=== PATIENT | female | born 1940 | race American Indian/Alaskan Native ===

== ENCOUNTER 2017-03-07 12:28 | Outpatient (CLI) | payer MEDICARE ==
--- NOTE | 2017-03-08 12:26 | Mammography Report ---
BONE DENSITY STUDY: DEFINITIONS: BMD = Bone Mineral Density T-score = BMD related to mean peak bone mass of young adult (mean expressed in Standard Deviation) Z-score = Age matched BMD expressed in SD World Health Organization (WHO) Diagnostic Criteria Normal T-score > -1 SD Osteopenia T-score between -1 and -2.4 SD Osteoporosis T-score -2.5 SD or below FINDINGS: The weighted average BMD of lumbar spine L1-L4 is 0.838 with a T-score of -1.9. The weighted average BMD of hip is 0.793 with a T-score of -1.2. IMPRESSION: The patient's T-score is diagnostic for osteopenia and average relative risk for fracture. NOTE: BMD is not the only risk factor for fracture; also consider factors such as the patient's age, risk of falling, previous osteoporotic fracture, family history of osteoporotic fractures, current smoker, and low body weight. Mcnulty's triangle is a region of interest in femur, predominantly of trabecular bone. It is not a true anatomic site, and [facility] does not recommend its use clinically.
== END 2017-03-07 12:29 | disposition home or self-care (01) ==
LOC: MAMMO 12:28
PROVIDERS: ATTEND Internal Medicine
DX: M85.88 Other specified disorders of bone density and structure, other site (principal); M81.0 Age-related osteoporosis without current pathological fracture; I11.0 Hypertensive heart disease with heart failure; I50.9 Heart failure, unspecified; I48.91 Unspecified atrial fibrillation; I25.10 Atherosclerotic heart disease of native coronary artery without angina pectoris; J44.9 Chronic obstructive pulmonary disease, unspecified; F12.10 Cannabis abuse, uncomplicated; Z87.891 Personal history of nicotine dependence
CPT/HCPCS: 77080

== ENCOUNTER 2017-03-22 15:25 | Inpatient (IN) | payer MEDICARE ==
[2017-03-22] MEDS ORDERED: NACL 0.9% 1000 ML 1,000 ML IV ONE (18:13)
--- NOTE | 2017-03-22 18:20 | Emergency Department Report ---
ED Chest Pain HPI - General Chief Complaint: Chest Pain Stated Complaint: CHEST PAIN Time Seen by Provider: 03/22/17 17:58 Source: EMS Mode of arrival: Stretcher Limitations: Physical Limitation - History of Present Illness Initial Comments: 76-year-old female here with complaint of nausea and feeling weak. Patient has some mild chest pain. Patient was at her primary care's office and was sent to the emergency department stay. She appears ill. He's had some nausea and diarrhea. Just complains of mild chest pain. She's been history of CAD. She denies fevers. She describes chest pain in the center of her chest doesn't radiate and she does not have associated symptoms. MD Complaint: chest pain -: Sudden Pain Radiation: none Severity: moderate Severity scale (0 -10): 7 Quality: tightness Consistency: intermittent Improves With: nothing re: nausea, vomting. denies: diaphoresis, dyspnea Treatments Prior to Arrival: none - Related Data Home Medications Medication Instructions Recorded Confirmed Last Taken ALPRAZolam [Alprazolam] 0.5 mg PO DAILY 11/14/14 11/14/14 11/14/14 Aclidinium [place] [[place] 1 inhalation INHALATION PRN PRN 11/14/14 11/14/14 1 Month Ago Pressair] Aspirin EC [Aspirin Enteric Coated 325 mg PO DAILY 11/14/14 11/14/14 11/14/14 05 :15 TAB] Furosemide 40 mg PO DAILY 11/14/14 11/14/14 11/14/14 Metoprolol Tartrate 25 mg PO BID 11/14/14 11/14/14 11/14/14 Potassium Chloride [Klor-Con M20] 20 meq PO DAILY 11/14/14 11/14/14 11/14/14 Rasagiline Mesylate (Nf) [Azilect 0.5 mg PO DAILY 11/14/14 11/14/14 11/14/14 (Nf)] levOCARNitine [Levocarnitine] 330 mg PO BID 11/14/14 11/14/14 11/14/14 Allergies Allergy/AdvReac Type Severity Reaction Status Date / Time Penicillins Allergy Severe Hives Verified 03/22/17 17:36 Heart Score - HEART Score History: Moderately suspicious EKG: Non-specific Age: > 65 Risk factors: > 3 risk factors or hx of atherosclerotic disease Troponin: < normal limit HEART Score: 6 ED Review of Systems ROS: Stated complaint: CHEST PAIN Other details as noted in HPI Comment: All other systems reviewed and negative Constitutional: malaise, weakness. denies: chills, fever Eyes: denies: eye pain, eye discharge, vision change ENT: denies: ear pain, throat pain Respiratory: denies: cough, shortness of breath, wheezing Cardiovascular: chest pain. denies: palpitations Endocrine: no symptoms reported Gastrointestinal: abdominal pain, nausea, vomiting, diarrhea Genitourinary: denies: urgency, dysuria, discharge Musculoskeletal: denies: back pain, joint swelling, arthralgia Skin: denies: rash, lesions Neurological: denies: headache, weakness, paresthesias Psychiatric: denies: anxiety, depression Hematological/Lymphatic: denies: easy bleeding, easy bruising ED Past Medical Hx - Past Medical History Hx Hypertension: Yes (2009) Hx Heart Attack/AMI: No Hx Congestive Heart Failure: Yes Hx Arthritis: Yes Hx COPD: Yes - Surgical History Hx Open Heart Surgery: Yes (12/09/94) Hx Cholecystectomy: Yes (2004) - Family History Family history: no significant - Social History Smoking Status: Never Smoker Substance Use Type: None - Medications Home Medications: Home Medications Medication Instructions Recorded Confirmed Last Taken Type ALPRAZolam [Alprazolam] 0.5 mg PO DAILY 11/14/14 11/14/14 11/14/14 History Aclidinium [place] [Tudorza 1 inhalation INHALATION PRN PRN 11/14/14 11/14/14 1 Month Ago History Pressair] Aspirin EC [Aspirin Enteric Coated 325 mg PO DAILY 11/14/14 11/14/14 11/14/14 05 :15 History TAB] Furosemide 40 mg PO DAILY 11/14/14 11/14/14 11/14/14 History Metoprolol Tartrate 25 mg PO BID 11/14/14 11/14/14 11/14/14 History Potassium Chloride [Klor-Con M20] 20 meq PO DAILY 11/14/14 11/14/14 11/14/14 History Rasagiline Mesylate (Nf) [Azilect 0.5 mg PO DAILY 11/14/14 11/14/14 11/14/14 History (Nf)] levOCARNitine [Levocarnitine] 330 mg PO BID 11/14/14 11/14/14 11/14/14 History ED Physical Exam - General Limitations: Physical Limitation General appearance: alert, other (weak appearing) - Head Head exam: Present: atraumatic, normocephalic - Eye Eye exam: Present: normal appearance. Absent: scleral icterus, conjunctival injection - ENT ENT exam: Present: mucous membranes moist - Neck Neck exam: Present: normal inspection - Respiratory Respiratory exam: Present: normal lung sounds bilaterally. Absent: respiratory distress, wheezes, rales - Cardiovascular Cardiovascular Exam: Present: regular rate, normal rhythm, normal heart sounds. Absent: systolic murmur, diastolic murmur, rubs, gallop - GI/Abdominal GI/Abdominal exam: Present: soft, normal bowel sounds. Absent: distended, tenderness - Extremities Exam Extremities exam: Present: normal inspection - Back Exam Back exam: Present: normal inspection - Neurological Exam Neurological exam: Present: alert, oriented X3 - Psychiatric Psychiatric exam: Present: normal affect, normal mood - Skin Skin exam: Present: warm, dry, intact, normal color. Absent: rash ED Course Vital Signs 03/22/17 03/22/17 17:27 17:37 Temperature 98.1 F Pulse Rate 103 H Respiratory 16 Rate Blood Pressure 139/96 Blood Pressure 139/96 [Left] O2 Sat by Pulse 98 99 Oximetry ED Medical Decision Making - Lab Data Result diagrams: 03/22/17 18:01 03/22/17 18:01 Laboratory Results - last 24 hr 03/22/17 03/22/17 03/22/17 18:01 18:01 18:01 WBC 9.8 RBC 4.87 Hgb 14.8 H Hct 44.1 H MCV 91 MCH 30 MCHC 34 RDW 14.5 Plt Count 192 Lymph % (Auto) 19.5 [place] % (Auto) 6.0 Eos % (Auto) 0.2 Baso % (Auto) 0.2 Lymph # 1.9 [place] # 0.6 Eos # 0.0 Baso # 0.0 Seg Neutrophils % 74.1 H Seg Neutrophils # 7.3 PT 13.7 INR 1.06 Sodium 142 Potassium 3.8 Chloride 100.9 Carbon Dioxide 27 Anion Gap 18 BUN 17 Creatinine 0.7 Estimated GFR > 60 BUN/Creatinine Ratio 24.28 Glucose 84 Lactic Acid Calcium 9.5 Total Bilirubin 1.60 H AST 15 ALT 8 Alkaline Phosphatase 69 Troponin T Total Protein 6.9 Albumin 4.2 Albumin/Globulin Ratio 1.6 Lipase 03/22/17 03/22/17 03/22/17 18:01 18:01 19:08 WBC RBC Hgb Hct MCV MCH MCHC RDW Plt Count Lymph % (Auto) [place] % (Auto) Eos % (Auto) Baso % (Auto) Lymph # [place] # Eos # Baso # Seg Neutrophils % Seg Neutrophils # PT INR Sodium Potassium Chloride Carbon Dioxide Anion Gap BUN Creatinine Estimated GFR BUN/Creatinine Ratio Glucose Lactic Acid 1.30 Calcium Total Bilirubin AST ALT Alkaline Phosphatase Troponin T < 0.010 Total Protein Albumin Albumin/Globulin Ratio Lipase 8 L - EKG Data -: EKG Interpreted by Il - EKG Data 03/22/17 18:19 Sinus 97 normal axis and occasional PVC, normal intervals T-wave inversions in 23 aVF and V3 through V6 - Medical Decision Making 76-year-old female here with weakness and chest pain. Patient having some nausea vomiting diarrhea. EKG shows T-wave inversions in multiple leads. She has a known history of CAD. Plan to check labs troponins and anticipated admission. She has a slightly elevated total bilirubin of 1.6. Given her symptoms of nausea vomiting and her ill appearance and plan a CT of her abdomen to further assess intra-abdominal pathology. She will need to be admitted for chest pain regardless. Portions of this chart were dictated with dictation software. There may be dictation errors contained within this note. Critical care attestation.: If time is entered above; I have spent that time in minutes in the direct care of this critically ill patient, excluding procedure time. ED Disposition Clinical Impression: Chest pain, Nausea and vomiting Disposition: OP ADMIT IP TO THIS HOSP Is pt being admited?: Yes Condition: Serious Instructions: Chest Pain (ED) Referrals: PRIMARY CARE, [Primary Care Provider] - 3-5 Days
[2017-03-22 18:30] LABS: Basophils % (Auto) 0.2 % (0.0-1.8); Eosinophils % (Auto) 0.2 % (0.0-4.3); Hematocrit 44.1 % (30.3-42.9); Hemoglobin 14.8 gm/dl (10.1-14.3); Mean Corpuscular HGB Conc 34 % (30-34); Mean Corpuscular Hemoglobin 30 pg (28-32); Mean Corpuscular Volume 91 fl (79-97); Platelet Count 192 K/mm3 (140-440); Red Blood Count 4.87 M/mm3 (3.65-5.03); Red Cell Distribution Width 14.5 % (13.2-15.2); White Blood Count 9.8 K/mm3 (4.5-11.0)
[2017-03-22 18:37] LABS: Alanine Aminotransferase 8 units/L (7-56); Albumin 4.2 g/dL (3.9-5); Albumin/Globulin Ratio 1.6 %; Alkaline Phosphatase 69 units/L (35-129); Anion Gap 18 mmol/L; BUN/Creatinine Ratio 24.28; Blood Urea Nitrogen 17 mg/dL (7-17); Calcium 9.5 mg/dL (8.4-10.2); Carbon Dioxide 27 mmol/L (22-30); Chloride 100.9 mmol/L (98-107); Glucose 84 mg/dL (65-100); Potassium 3.8 mmol/L (3.6-5.0); Sodium 142 mmol/L (137-145); Total Protein 6.9 g/dL (6.3-8.2)
[2017-03-22 18:45] LABS: INR 1.06 (0.87-1.13)
[2017-03-22] MEDS ORDERED: NACL ONE (20:59)
--- NOTE | 2017-03-22 22:23 | Cat Scan Report ---
FINAL REPORT EXAM: CT ABDOMEN PELVIS W CON HISTORY: nausea, vomiting, abdominal pain, chest pain TECHNIQUE: Spiral CT scanning of the abdomen and pelvis after the uneventful administration of IV contrast. Multiplanar reformations. 100 mL Omnipaque IV. PRIORS: None. FINDINGS: Abdomen: Visualized lung bases grossly unremarkable. Gallbladder surgically absent. Liver without significant abnormality. Spleen without significant abnormality. Pancreas without significant abnormality. Ovoid hypodensity in the right kidney upper pole measures approximately 3.5 cm, with Hounsfield units measuring 41, not compatible with a simple cyst. Smaller, rounded hypodensities in right renal mid and lower pole, largest measuring 1.6 cm, suspicious for solid lesions. Probable subcentimeter left renal cyst. No significant hydronephrosis. Adrenal glands without significant abnormality. Pelvis: Majority of the colon incompletely or nondistended, with variable bowel wall and fold thickening, but no significant pericolonic fat stranding. Mild diverticular change in the sigmoid colon. No evidence of mechanical bowel obstruction. Appendix within normal limits. No significant free peritoneal fluid or apparent adenopathy. Abdominal aorta non-aneurysmal. Probable partially calcified, leiomyomatous change in the uterus. Marked compression deformity in L2 vertebral body level, with retropulsed fragment and considerable central spinal canal narrowing. Degenerative change in the lumbar spine. Small, fat-containing left inguinal hernia. IMPRESSION: 1. Findings suspicious for complex cystic foci versus solid lesions in right kidney as reported. Correlation with renal ultrasound may help in further evaluation, as clinically indicated, and followup suggested. 2. Findings which may be due to incomplete or nondistention versus nonspecific postinflammatory change in the colon of uncertain chronicity. Correlate clinically. 3. Marked, possible insufficiency compression deformity in L2 vertebral body, with considerable central spinal stenosis.
--- NOTE | 2017-03-22 22:57 | History and Physical Report ---
History of Present Illness Date of examination: 03/22/17 History of present illness: 76-year-old woman with a history of Parkinson's, coronary artery disease high blood pressure brought to the emergency room with complaints of abdominal pain around the periumbilical area which she describes as a sharp pain, intermittent in nature and lasted for 5 minutes, density 7/10, radiating up into the epigastric area, she cannot identify exacerbating or relieving factors. Pain started on Tuesday, associated with nausea, diaphoresis Review Of Systems: Constitutional: no weight loss Ears, eyes, nose, mouth and throat: no nasal congestion, no nasal discharge, no sinus pressure, blurry vision, diplopia Neck: No neck pain or rigidity. Cardiovascular: chest pain, orthopnea, palpitations Respiratory: No shortness of breath, cough Gastrointestinal:no hematochezia Genitourinary : no dysuria, frequency , hematuria Musculoskeletal: no muscle ache Integumentary: no rash, no pruritis Neurological: no parathesias, focal weakness Endocrine: no cold or heat intolerance, no polyuria or polydipsia Hematologic/Lymphatic: no easy bruising, no easy bleeding, no gland swelling Allergic/Immunologic: no urticaria, no angioedema. PAST MEDICAL HISTORY: Parkinson's, coronary artery disease, high blood pressure PAST SURGICAL HISTORY: Cholecystectomy, CABG FAMILY HISTORY: Hypertension SOCIAL HISTORY: Denies alcohol, tobacco, drugs Medications and Allergies Allergies Allergy/AdvReac Type Severity Reaction Status Date / Time Penicillins Allergy Severe Hives Verified 03/22/17 17:36 Home Medications Medication Instructions Recorded Confirmed Last Taken Type ALPRAZolam [Alprazolam] 0.5 mg PO DAILY 11/14/14 03/22/17 11/14/14 History Aclidinium [place] [Tudorza 1 inhalation INHALATION PRN PRN 11/14/14 03/22/17 1 Month Ago History Pressair] Aspirin EC [Aspirin Enteric Coated 325 mg PO DAILY 11/14/14 03/22/17 11/14/14 05 :15 History TAB] Furosemide 40 mg PO DAILY 11/14/14 03/22/17 11/14/14 History Metoprolol Tartrate 25 mg PO BID 11/14/14 03/22/17 11/14/14 History Potassium Chloride [Klor-Con M20] 20 meq PO DAILY 11/14/14 03/22/17 11/14/14 History Rasagiline Mesylate (Nf) [Azilect 0.5 mg PO DAILY 11/14/14 03/22/17 11/14/14 History (Nf)] levOCARNitine [Levocarnitine] 330 mg PO BID 11/14/14 03/22/17 11/14/14 History Exam - Physical Exam Narrative exam: Gen. appearance: Patient lying in bed in no acute distress HEENT: Normocephalic/atraumatic, pupils equal round reactive to light, extra alkaline movement intact, no scleral icterus, no JVD or thyromegaly or nodule, neck is supple, mucous membrane moist, no erythema or exudate Heart: S1-S2, regular rate and rhythm Lungs: Clear to auscultation bilateral breathing comfortable Abdomen: Positive bowel sounds, tender in the periumbilical area, nondistended, no organomegaly Extremities: No edema, cyanosis, clubbing Neuro:: Oriented 3 , cranial nerves II-12 intact, speech, motor intact Skin: No rash, nodules, warm dry - Constitutional Vitals: Temp Pulse Resp BP Pulse Ox 98.1 F 103 H 16 139/96 99 03/22/17 17:27 03/22/17 17:27 03/22/17 17:27 03/22/17 17:27 03/22/17 17:37 Results - Labs CBC & Chem 7: 03/22/17 18:01 03/22/17 18:01 Labs: Abnormal lab results 03/22/17 03/22/17 03/22/17 Range/Units 18:01 18:01 18:01 Hgb 14.8 H (10.1-14.3) gm/dl Hct 44.1 H (30.3-42.9) % Seg Neutrophils % 74.1 H (40.0-70.0) % Total Bilirubin 1.60 H (0.1-1.2) mg/dL Lipase 8 L (13-60) units/L - Imaging and Cardiology CT scan - abdomen: pending CT scan - pelvis: pending Assessment and Plan Assessment Abdominal pain Abnormal appearance of the kidneys Coronary artery disease Hypertension Parkinson's Plan Admit to medicine Obtain ultrasound of the kidneys Check cardiac enzymes, continue appropriate outpatient medications DVT prophylaxis
[2017-03-23] MEDS ORDERED: TYLENOL PO PRN (00:50)
[2017-03-23] MEDS: ZOFRAN IV PRN ×2 (01:35→18:07)
[2017-03-23] MEDS: PERCOCET 5/325 PO PRN ×2 (01:35→22:22)
[2017-03-23 03:06] LABS: Creatine Kinase MB 1.3 ng/mL (0.0-4.0)
[2017-03-23 03:08] LABS: Creatine Kinase 38 units/L (30-135)
--- NOTE | 2017-03-23 08:03 | XRay Report ---
AP CHEST: HISTORY: chest pain No comparison. Previous thoracic surgery changes are noted. There is normal heart size and pulmonary vascularity. The lungs are clear. The bony structures are grossly intact. IMPRESSION: No acute cardiopulmonary process identified.
[2017-03-23 08:05] LABS: Creatine Kinase MB 1.4 ng/mL (0.0-4.0)
[2017-03-23 08:06] LABS: Creatine Kinase 35 units/L (30-135)
[2017-03-23] MEDS: LOVENOX SUB-Q SCH (09:44)
--- NOTE | 2017-03-23 09:45 | Ultrasound Report ---
ULTRASOUND RENAL BILATERAL INDICATION: Followup renal CT findings. COMPARISON: Yesterday's CT. FINDINGS: Renal sonography demonstrates normal/top normal renal cortical echogenicity. Grossly preserved contours. No hydronephrosis. RIGHT KIDNEY is 11.5 x 4.6 x 4.6 cm with cortical thickness of 1.5 cm. Of 2 dominant somewhat complex right renal CT hypodensities, the larger at the superior pole measuring 3.5 x 3.4 cm, image 5 appears hypoechoic/simple cystic. Another small 1 cm mid to lower renal cortical hypoechoic focus may also be present, images 25-27. LEFT KIDNEY is 9.3 x 5 x 4.6 cm with cortical thickness of 1.3 cm. Normal imaged URINARY BLADDER. CONCLUSION: At least 2 right renal hypoechoic foci/cysts, though were somewhat complex by CT. No acute renal sonographic abnormality. Please also correlate clinically and with prior relevant imaging, if available from an outside institution. If none, dedicated renal mass protocol short-term CT followup may be considered to assess for stability, as appropriate. Thank you for the opportunity to participate in this patient's care.
[2017-03-23] MEDS ORDERED: ACLIDINIUM BROMIDE INHALATION PRN (10:13)
[2017-03-23] MEDS ORDERED: LEVOCARNITINE 330 MG PO SCH (10:15)
[2017-03-23] MEDS: K-DUR PO SCH (11:27)
[2017-03-23] MEDS: LASIX PO SCH (11:28)
[2017-03-23] MEDS: LOPRESSOR PO SCH ×2 (11:29→22:19)
[2017-03-23] MEDS ORDERED: XANAX PO SCH (12:00)
[2017-03-23] MEDS ORDERED: SINEMET PO SCH ×2 (15:00→22:00)
--- NOTE | 2017-03-23 15:26 | Progress Note ---
Assessment and Plan Assessment and plan: 76-year-old woman with a history of Parkinson's, coronary artery disease high blood pressure brought to the emergency room with complaints of abdominal pain around the periumbilical area which she describes as a sharp pain, intermittent in nature and lasted for 5 minutes, density 7/10, radiating up into the epigastric area, she cannot identify exacerbating or relieving factors. Pain started on Tuesday, associated with nausea, diaphoresis Abdominal pain * GI eval. Could be secondary to recurrent Hernia * Continue nausea treatment Abnormal appearance of the kidneys * Renal Cyst * urology eval outpatient * short term repeat CT abdomen outpatient Coronary artery disease * Cardiac enzymes negative. * Cardiology consult due to intermittent chest pain. Patient known to their service Hypertension * Resume home meds Parkinson's * Resume home meds Compression fracture * S/P fall a few months ago * Currently in physical therapy * Outpatient orthopedic eval DVT/GI prophy PLAN OF CARE DISCUSSED IN DETAIL WITH THE PATIENT. History Interval history: Patient seen and examined in no acute distress. She reports improvement but not yet at baseline. Abdominal pain appears to be improving. She does acknowledge to me that she had a fall a few months ago and since then had noted above the fracture. She is followed by physical therapy outpatient. She although reports she's been having intractable nausea for multiple months now. And sometimes extending to chest pain. She also has had difficulty with by mouth intake especially when the nausea and sepsis worse. Hospitalist Physical - Physical exam Narrative exam: VITAL SIGNS: Reviewed. GENERAL: The patient appeared well nourished and normally developed. Vital signs as documented. HEAD: No signs of head trauma. EYES: Pupils are equal. Extraocular motions intact. EARS: Hearing grossly intact. MOUTH: Oropharynx is normal. NECK: No adenopathy, no JVD. CHEST: Chest with clear breath sounds bilaterally. No wheezes, rales, or rhonchi. CARDIAC: Regular rate and rhythm. S1 and S2, without murmurs, gallops, or rubs. VASCULAR: No Edema. Peripheral pulses normal and equal in all extremities. ABDOMEN: Soft, without detectable tenderness. No sign of distention. No rebound or guarding, and no masses palpated. Bowel Sounds normal. MUSCULOSKELETAL: Good range of motion of all major joints. Extremities without clubbing, cyanosis or edema. NEUROLOGIC EXAM: Alert and oriented x 3. No focal sensory or strength deficits. Speech normal. Follows commands. Fine resting tremor PSYCHIATRIC: Mood normal. SKIN: Well-healed surgical scar - Constitutional Vitals: Temp Pulse Resp BP Pulse Ox 98.2 F 68 16 153/97 96 03/23/17 13:04 03/23/17 13:04 03/23/17 13:04 03/23/17 13:04 03/23/17 10:14 Results - Labs CBC & Chem 7: 03/22/17 18:01 03/22/17 18:01 Labs: Laboratory Last Values WBC 9.8 K/mm3 (4.5-11.0) 03/22/17 18:01 RBC 4.87 M/mm3 (3.65-5.03) 03/22/17 18:01 Hgb 14.8 gm/dl (10.1-14.3) H 03/22/17 18:01 Hct 44.1 % (30.3-42.9) H 03/22/17 18:01 MCV 91 fl (79-97) 03/22/17 18:01 MCH 30 pg (28-32) 03/22/17 18:01 MCHC 34 % (30-34) 03/22/17 18:01 RDW 14.5 % (13.2-15.2) 03/22/17 18:01 Plt Count 192 K/mm3 (140-440) 03/22/17 18:01 Lymph % (Auto) 19.5 % (13.4-35.0) 03/22/17 18:01 [place] % (Auto) 6.0 % (0.0-7.3) 03/22/17 18:01 Eos % (Auto) 0.2 % (0.0-4.3) 03/22/17 18:01 Baso % (Auto) 0.2 % (0.0-1.8) 03/22/17 18:01 Lymph # 1.9 K/mm3 (1.2-5.4) 03/22/17 18:01 [place] # 0.6 K/mm3 (0.0-0.8) 03/22/17 18:01 Eos # 0.0 K/mm3 (0.0-0.4) 03/22/17 18:01 Baso # 0.0 K/mm3 (0.0-0.1) 03/22/17 18:01 Seg Neutrophils % 74.1 % (40.0-70.0) H 03/22/17 18:01 Seg Neutrophils # 7.3 K/mm3 (1.8-7.7) 03/22/17 18:01 PT 13.7 Sec. (12.2-14.9) 03/22/17 18:01 INR 1.06 (0.87-1.13) 03/22/17 18:01 Sodium 142 mmol/L (137-145) 03/22/17 18:01 Potassium 3.8 mmol/L (3.6-5.0) 03/22/17 18:01 Chloride 100.9 mmol/L (98-107) 03/22/17 18:01 Carbon Dioxide 27 mmol/L (22-30) 03/22/17 18:01 Anion Gap 18 mmol/L 03/22/17 18:01 BUN 17 mg/dL (7-17) 03/22/17 18:01 Creatinine 0.7 mg/dL (0.7-1.2) 03/22/17 18:01 Estimated GFR > 60 ml/min 03/22/17 18:01 BUN/Creatinine Ratio 24.28 % 03/22/17 18:01 Glucose 84 mg/dL (65-100) 03/22/17 18:01 Lactic Acid 1.30 mmol/L (0.7-2.0) 03/22/17 19:08 Calcium 9.5 mg/dL (8.4-10.2) 03/22/17 18:01 Total Bilirubin 1.60 mg/dL (0.1-1.2) H 03/22/17 18:01 AST 15 units/L (5-40) 03/22/17 18:01 ALT 8 units/L (7-56) 03/22/17 18:01 Alkaline Phosphatase 69 units/L (35-129) 03/22/17 18:01 Total Creatine Kinase 35 units/L (30-135) 03/23/17 06:50 CK-MB (CK-2) 1.4 ng/mL (0.0-4.0) 03/23/17 06:50 CK-MB (CK-2) Rel Index 4.0 (0-4) 03/23/17 06:50 Troponin T < 0.010 ng/mL (0.00-0.029) 03/23/17 06:50 Total Protein 6.9 g/dL (6.3-8.2) 03/22/17 18:01 Albumin 4.2 g/dL (3.9-5) 03/22/17 18:01 Albumin/Globulin Ratio 1.6 % 03/22/17 18:01 Lipase 8 units/L (13-60) L 03/22/17 18:01 - Imaging and Cardiology Chest x-ray: image reviewed (no acute pathology)
[2017-03-23] MEDS: RASAGILINE MESYLATE 1 MG PO SCH (16:52)
[2017-03-23] MEDS: SINEMET PO SCH (22:19)
[2017-03-24 06:01] LABS: Basophils % (Auto) 1.1 % (0.0-1.8); Eosinophils % (Auto) 3.9 % (0.0-4.3); Hematocrit 40.1 % (30.3-42.9); Hemoglobin 13.3 gm/dl (10.1-14.3); Mean Corpuscular HGB Conc 33 % (30-34); Mean Corpuscular Hemoglobin 30 pg (28-32); Mean Corpuscular Volume 91 fl (79-97); Platelet Count 154 K/mm3 (140-440); Red Blood Count 4.39 M/mm3 (3.65-5.03); Red Cell Distribution Width 14.5 % (13.2-15.2); White Blood Count 5.6 K/mm3 (4.5-11.0)
[2017-03-24 06:17] LABS: Anion Gap 16 mmol/L; Blood Urea Nitrogen 7 mg/dL (7-17); Calcium 8.5 mg/dL (8.4-10.2); Carbon Dioxide 24 mmol/L (22-30); Glucose 81 mg/dL (65-100); Potassium 3.6 mmol/L (3.6-5.0); Sodium 139 mmol/L (137-145)
[2017-03-24] MEDS: LASIX PO SCH (09:22)
[2017-03-24] MEDS: K-DUR PO SCH (09:22)
[2017-03-24] MEDS: LOPRESSOR PO SCH (09:23)
[2017-03-24] MEDS: RASAGILINE MESYLATE 1 MG PO SCH (09:24)
[2017-03-24] MEDS: SINEMET PO SCH (09:25)
[2017-03-24 09:27] VITALS: BP 108/73
[2017-03-24] MEDS: LOVENOX SUB-Q SCH (09:27)
--- NOTE | 2017-03-24 10:29 | Discharge Summary ---
Providers - Providers Date of Admission: 03/22/17 22:55 Attending physician: GILBERT SANCHEZ MD 03/23/17 12:08 Consult to Physician [CONS] Routine Consulting Provider: FIONA SAHU Reason For Exam: chest pain Place consult to:: OFFICE Notified:: YES Phone number called:: [phone] If yes, spoke with:: STEFANO Time called:: 13:18 Comment:: DANIEL 03/23/17 15:26 Consult to Physician [CONS] Routine Consulting Provider: GEOFF JENKINS Reason For Exam: ABDOMINAL PAIN Place consult to:: ANSWERING SERVICE Notified:: YES Phone number called:: [phone] If yes, spoke with:: EVETTE Time called:: 16:53 Comment:: DANIEL Primary care physician: ROGERS BENNETT Hospitalization Reason for admission: INTERACTABLE NASUEA WITH VOMITING Condition: Serious Hospital course: 76-year-old woman with a history of Parkinson's, coronary artery disease high blood pressure brought to the emergency room with complaints of abdominal pain around the periumbilical area which she describes as a sharp pain, intermittent in nature and lasted for 5 minutes, density 7/10, radiating up into the epigastric area, she cannot identify exacerbating or relieving factors. Pain started on Tuesday, associated with nausea, diaphoresis Abdominal pain * Secondary to recurrent Hernia, tolerating diet now and will follow with GI outpatient * Continue nausea treatment INTRACTABLE NAUSEA WITH VOMITING * ANTI-EMETICS Abnormal appearance of the kidneys * Renal Cyst * urology eval outpatient-Discussed with patient and she will discuss with her PCP * short term repeat CT abdomen outpatient Coronary artery disease * Cardiac enzymes negative. * patient reports of chest pain consistent with GERD, cardiac enzymes were negative. it happens with nausea and is burning in nature and resolves post vomiting. she will follow with cardiology in the office. Hypertension * Resume home meds Parkinson's * Resume home meds Compression fracture * S/P fall a few months ago * Currently in physical therapy OUTPATIENT * Outpatient orthopedic eval-REFERRAL GIVEN Disposition: DC/TX- HOME UNDER [facility] Time spent for discharge: 35 mins Core Measure Documentation - Palliative Care Palliative Care/ Comfort Measures: Not Applicable - Core Measures Any of the following diagnoses?: none - VTE Discharge Requirements Deep Vein Thrombosis/Pulmonary Embolism Present on Admission: No Exam - Physical Exam Narrative exam: VITAL SIGNS: Reviewed. GENERAL: The patient appeared well nourished and normally developed. Vital signs as documented. HEAD: No signs of head trauma. EYES: Pupils are equal. Extraocular motions intact. EARS: Hearing grossly intact. MOUTH: Oropharynx is normal. NECK: No adenopathy, no JVD. CHEST: Chest with clear breath sounds bilaterally. No wheezes, rales, or rhonchi. CARDIAC: Regular rate and rhythm. S1 and S2, without murmurs, gallops, or rubs. VASCULAR: No Edema. Peripheral pulses normal and equal in all extremities. ABDOMEN: Soft, without detectable tenderness. No sign of distention. No rebound or guarding, and no masses palpated. Bowel Sounds normal. MUSCULOSKELETAL: Good range of motion of all major joints. Extremities without clubbing, cyanosis or edema. NEUROLOGIC EXAM: Alert and oriented x 3. No focal sensory or strength deficits. Speech normal. Follows commands. Fine resting tremor PSYCHIATRIC: Mood normal. SKIN: Well-healed surgical scar - Constitutional Vitals: Temp Pulse Resp BP Pulse Ox 97.8 F 77 18 108/73 97 03/23/17 19:50 03/24/17 09:23 03/23/17 22:00 03/24/17 09:23 03/23/17 22:00 Plan Activity: advance as tolerated, fall precautions Diet: low fat Special Instructions: record daily BP diary Follow up with: FIONA SAHU MD [Staff Physician] - 7 Days YRIS MATOS MD [Staff Physician] - 7 Days PRIMARY CARE, [Referring] - 3-5 Days CHER LOPEZ MD [Staff Physician] - 7 Days Prescriptions: Ondansetron [Zofran Odt] 4 mg PO Q8HR #30 tab.rapdis traMADol [Ultram] 50 mg PO Q6HR PRN #14 tablet PRN Reason: Pain
[2017-03-24] MEDS ORDERED: ECOTRIN PO SCH (12:00)
--- NOTE | 2017-03-24 15:02 | Event Note ---
Date: 03/24/17 Patient was discharged from the hospital before a cardiology consult could be completed. If cardiology evaluation is still required, please advise the patient to follow- up in the office phone number [phone].
== END 2017-03-24 14:05 | disposition home health service (06) | DRG 395 ==
LOC: ED 15:25 → CC2 22:55 → 3A 23:21 → CC2 23:23 → 3A 23:43 → CC2 23:47
PROVIDERS: ADMIT Internal Medicine; ATTEND Internal Medicine
DX: K46.9 Unspecified abdominal hernia without obstruction or gangrene (principal); I25.10 Atherosclerotic heart disease of native coronary artery without angina pectoris; G20 Parkinson's disease; N28.1 Cyst of kidney, acquired; I11.0 Hypertensive heart disease with heart failure; K21.9 Gastro-esophageal reflux disease without esophagitis; T14.8 Other injury of unspecified body region; I50.9 Heart failure, unspecified; J44.9 Chronic obstructive pulmonary disease, unspecified; Z90.49 Acquired absence of other specified parts of digestive tract; Z88.0 Allergy status to penicillin; Z79.82 Long term (current) use of aspirin; Z95.1 Presence of aortocoronary bypass graft; Z82.49 Family history of ischemic heart disease and other diseases of the circulatory system
CPT/HCPCS: 36415; 71010; 74177; 76770; 80048; 80053; 82140; 82550; 82553; 83690; 84484; 85025; 85610; 93005; 93010; 96360; 96361; J1650; J2405; J7030; Q9967

== ENCOUNTER 2018-11-09 15:04 | Inpatient (IN) | payer MEDICARE ==
--- NOTE | 2018-11-09 15:17 | Emergency Department Report ---
Blank Doc - Documentation Documentation: 77 y/o female with Hx/o of Parkinson disease and HTN comes in for rt arm tingl ing and numbness. BS 109 in Triage. Gripe is decreased from left. Code Stroke Called.
--- NOTE | 2018-11-09 15:38 | Emergency Department Report ---
ED Neuro Deficit HPI - General Chief Complaint: Weakness Stated Complaint: SICK Time Seen by Provider: 11/09/18 15:13 Source: patient, RN notes reviewed, old records reviewed Mode of arrival: Ambulatory Limitations: Physical Limitation - History of Present Illness Initial Comments: Primary care Dr.: Dr. Barrera Past medical history: Chronic right shoulder pain, arthritis, heart disease, history of cardiac bypass, parkinsonism, questionable GERD This is a 77-year-old female. The patient is not known to this provider previously. The patient presents to the emergency room with resolving right upper extremity weakness. Patient reports chronic right-sided shoulder pain. She reports that earlier on today, she felt like she could not move her right upper extremity. This started at 2:00. It lasted until arrival. It is now resolved. The patient makes no complaints this provider about numbness in either of her upper or lower extremities. She denies headache, neck pain, chest pain, abdominal pain, shortness of breath. She denies bladder or bowel retention, incontinence, she denies saddle anesthesia she reports chronic right shoulder pain which is not really new worse or different, she reports that she is received steroid injections in the past, although hasn't received an injection in quite some time -: Sudden Location: right arm Presenting Symptoms: Present: Weak/Paralyzed One Side (as per history of present illness). Absent: Sudden, Severe Headache, Blurred/Loss of Vision, Facial Droop/Numbness, Unable to Speak Clearly, Altered Mental Status History of same: No Place: work Severity: mild, moderate Quality: weak Improves With: rest Worsens With: medication On Anticoagulants: Yes (patient taking aspirin) - Related Data Home Medications: Home Medications Medication Instructions Recorded Confirmed Last Taken Aspirin EC [Aspirin Enteric Coated 325 mg PO DAILY 11/14/14 03/22/17 11/14/14 05:15 TAB] Furosemide 40 mg PO DAILY 11/14/14 03/22/17 11/14/14 Metoprolol Tartrate 25 mg PO BID 11/14/14 03/22/17 11/14/14 Potassium Chloride [Klor-Con M20] 20 meq PO DAILY 11/14/14 03/22/17 11/14/14 Rasagiline Mesylate (Nf) [Azilect 0.5 mg PO DAILY 11/14/14 03/22/17 11/14/14 (Nf)] Carbidopa/Levodopa 25-100 [Sinemet 25 - 100 mg PO BID 03/23/17 03/23/17 Unknown 25100] Previous Rx's Medication Instructions Recorded Last Taken Type Carbidopa/Levodopa 25-100 [Sinemet 1 each PO BID #1 tablet 03/24/17 Unknown Rx 25100] Ondansetron [Zofran Odt] 4 mg PO Q8HR #30 tab.rapdis 03/24/17 Unknown Rx traMADol [Ultram] 50 mg PO Q6HR PRN #14 tablet 03/24/17 Unknown Rx Allergies/Adverse Reactions: Allergies Allergy/AdvReac Type Severity Reaction Status Date / Time Penicillins Allergy Severe Hives Verified 03/22/17 17:36 ED Review of Systems ROS: Stated complaint: SICK Other details as noted in HPI Constitutional: denies: fever Eyes: denies: eye discharge ENT: denies: epistaxis Respiratory: denies: cough Cardiovascular: denies: chest pain Gastrointestinal: denies: abdominal pain Genitourinary: denies: urgency, dysuria Musculoskeletal: back pain, arthralgia, myalgia Skin: denies: lesions Neurological: weakness, numbness, paresthesias ED Past Medical Hx - Past Medical History Hx Hypertension: Yes (2009) Hx Heart Attack/AMI: No Hx Congestive Heart Failure: Yes Hx Arthritis: Yes Hx COPD: Yes Additional medical history: parkinsons - Surgical History Hx Open Heart Surgery: Yes (12/09/94) Hx Cholecystectomy: Yes (2004) - Social History Smoking Status: Never Smoker Substance Use Type: None - Medications Home Medications: Home Medications Medication Instructions Recorded Confirmed Last Taken Type Aspirin EC [Aspirin Enteric Coated 325 mg PO DAILY 11/14/14 03/22/17 11/14/14 05:15 History TAB] Furosemide 40 mg PO DAILY 11/14/14 03/22/17 11/14/14 History Metoprolol Tartrate 25 mg PO BID 11/14/14 03/22/17 11/14/14 History Potassium Chloride [Klor-Con M20] 20 meq PO DAILY 11/14/14 03/22/17 11/14/14 History Rasagiline Mesylate (Nf) [Azilect 0.5 mg PO DAILY 11/14/14 03/22/17 11/14/14 History (Nf)] Carbidopa/Levodopa 25-100 [Sinemet 25 - 100 mg PO BID 03/23/17 03/23/17 Unknown History 25] Carbidopa/Levodopa 25-100 [Sinemet 1 each PO BID #1 tablet 03/24/17 Unknown Rx 25] Ondansetron [Zofran Odt] 4 mg PO Q8HR #30 tab.rapdis 03/24/17 Unknown Rx traMADol [Ultram] 50 mg PO Q6HR PRN #14 tablet 03/24/17 Unknown Rx ED Neuro Physical Exam - General Limitations: No Limitations, Physical Limitation Suspected Stroke: No - Head Head exam: Present: atraumatic, normocephalic - Eye Eye exam: Present: normal appearance, PERRL, EOMI, other (visual acuity intact to finger counting, color perception, reading at a close distance). Absent: nystagmus - ENT ENT exam: Present: normal exam, normal orophraynx, mucous membranes moist, normal external ear exam - Neck Neck exam: Present: normal inspection, full ROM. Absent: tenderness, meningismus - Respiratory Respiratory exam: Present: normal lung sounds bilaterally. Absent: respiratory distress - Cardiovascular Cardiovascular Exam: Present: normal rhythm, bradycardia, normal heart sounds. Absent: tachycardia, irregular rhythm, systolic murmur, diastolic murmur, rubs, gallop - GI/Abdominal GI/Abdominal exam: Present: soft. Absent: distended, tenderness, guarding, rebound, rigid, pulsatile mass - Extremities Exam Extremities exam: Present: normal inspection, tenderness (there is proximal right shoulder reproducible tenderness. There is no redness, pus or streaking. The muscular compartments are soft.), other (2+ pulses noted in the bilateral upper, lower extremities. Compartments soft. No long bony tenderness. The pelvis is stable.). Absent: full ROM - Back Exam Back exam: Present: normal inspection, full ROM. Absent: tenderness, CVA tenderness (R), paraspinal tenderness, vertebral tenderness - Neurological Exam Neurological exam: Present: alert, other (Extraocular movements intact. Tongue midline. No facial droop. Facial sensation intact to light touch in the V1, V2, V3 distribution bilaterally. 5 and 5 strength in 4 extremities.. Sensation is intact to light touch in 4 extremities.). Absent: motor sensory deficit - NIHSS Assessment Interval: Baseline 1a. Level of Consciousness: alert/keenly responsive 1b. LOC Questions: answers both correctly 1c. LOC Commands: performs tasks correctly 2. Best Gaze: normal 3. Visual: no visual loss 4. Facial Palsy: normal symmetrical movement 5b. Motor Arm Right: no drift 5a. Motor Arm Left: no drift 6a. Motor Leg Left: no drift 6b. Motor Leg Right: no drift 7. Limb Ataxia: absent 8. Sensory: normal 9. Best Language: no aphasia 10. Dysarthria: normal 11. Extinction/Inattention: no abnormality Total Score: 0 Stroke Severity: No Stroke Symptoms - Psychiatric Psychiatric exam: Present: anxious - Skin Skin exam: Present: warm, dry, intact, normal color. Absent: rash ED Course Vital Signs 11/09/18 11/09/18 11/09/18 15:14 15:56 16:01 Temperature 98.6 F Pulse Rate 62 58 L 65 Respiratory 18 13 19 Rate Blood Pressure 135/82 156/86 O2 Sat by Pulse 98 97 Oximetry 11/09/18 11/09/18 11/09/18 16:15 16:30 16:45 Temperature Pulse Rate 60 55 L 58 L Respiratory 18 14 20 Rate Blood Pressure 156/96 165/88 179/98 O2 Sat by Pulse 78 L 98 98 Oximetry - Reevaluation(s) Reevaluation #1: 11/09/18 16:11 Differential diagnosis, including not limited to: Transient ischemic attack, peripheral neuropathy, cervical radiculopathy, chronic right-sided shoulder pain, peripheral neuropathy, chronic parkinsonism Assessment and plan: 77-year-old female with an NIH score of 0 at this time, with chronic right-sided shoulder pain, no obvious motor deficits, does not meet TPA criteria at this time, given NIH score of 0. Based off of the history and physical, I suspect that the patient had exacerbation of her chronic right-sided shoulder pain, and may have a component of cervical radiculopathy versus peripheral neuropathy. Her exam and history at this point in time are not consistent with cervical cord compression syndrome. Code stroke is called overhead, patient had a negative noncontrast CT scan of the brain, and she is currently being interviewed by stroke neurology specialist. We will discuss with them to determine further plan of care. Anticipate admission for further evaluation. However, based off of the history and physical, do not anticipate need to obtain emergent angiogram of the head and neck Reevaluation #2: 11/09/18 17:08 Feels improved. No neurologic deficits on repeat examination. Family and patient state that she is neurologically at baseline. Not a TPA candidate as previously described. Neurology recommendations reviewed and appreciated. Dr. Cox to admit to the medical service. - Lab Data Result diagrams: 11/09/18 15:55 11/09/18 15:55 Lab Results 11/09/18 11/09/18 11/09/18 Range/Units 15:55 15:55 15:55 WBC 5.6 (4.5-11.0) K/mm3 RBC 4.53 (3.65-5.03) M/mm3 Hgb 13.6 (10.1-14.3) gm/dl Hct 41.4 (30.3-42.9) % MCV 91 (79-97) fl MCH 30 (28-32) pg MCHC 33 (30-34) % RDW 14.3 (13.2-15.2) % Plt Count 209 (140-440) K/mm3 Lymph % (Auto) 37.2 H (13.4-35.0) % Greenlee % (Auto) 7.9 H (0.0-7.3) % Eos % (Auto) 2.1 (0.0-4.3) % Baso % (Auto) 1.3 (0.0-1.8) % Lymph # 2.1 (1.2-5.4) K/mm3 Greenlee # 0.4 (0.0-0.8) K/mm3 Eos # 0.1 (0.0-0.4) K/mm3 Baso # 0.1 (0.0-0.1) K/mm3 Seg Neutrophils % 51.5 (40.0-70.0) % Seg Neutrophils # 2.9 (1.8-7.7) K/mm3 PT 13.1 (12.2-14.9) Sec. INR 0.94 (0.87-1.13) APTT 30.5 (24.2-36.6) Sec. Thrombin Time (15.1-19.6) Sec. Sodium 143 (137-145) mmol/L Potassium 3.6 (3.6-5.0) mmol/L Chloride 105.3 (98-107) mmol/L Carbon Dioxide 29 (22-30) mmol/L Anion Gap 12 mmol/L BUN 9 (7-17) mg/dL Creatinine 0.8 (0.7-1.2) mg/dL Estimated GFR > 60 ml/min BUN/Creatinine Ratio 11 % Glucose 81 (65-100) mg/dL Calcium 9.0 (8.4-10.2) mg/dL Troponin T < 0.010 (0.00-0.029) ng/mL 11/09/18 Range/Units 15:55 WBC (4.5-11.0) K/mm3 RBC (3.65-5.03) M/mm3 Hgb (10.1-14.3) gm/dl Hct (30.3-42.9) % MCV (79-97) fl MCH (28-32) pg MCHC (30-34) % RDW (13.2-15.2) % Plt Count (140-440) K/mm3 Lymph % (Auto) (13.4-35.0) % Greenlee % (Auto) (0.0-7.3) % Eos % (Auto) (0.0-4.3) % Baso % (Auto) (0.0-1.8) % Lymph # (1.2-5.4) K/mm3 Greenlee # (0.0-0.8) K/mm3 Eos # (0.0-0.4) K/mm3 Baso # (0.0-0.1) K/mm3 Seg Neutrophils % (40.0-70.0) % Seg Neutrophils # (1.8-7.7) K/mm3 PT (12.2-14.9) Sec. INR (0.87-1.13) APTT (24.2-36.6) Sec. Thrombin Time 17.9 (15.1-19.6) Sec. Sodium (137-145) mmol/L Potassium (3.6-5.0) mmol/L Chloride (98-107) mmol/L Carbon Dioxide (22-30) mmol/L Anion Gap mmol/L BUN (7-17) mg/dL Creatinine (0.7-1.2) mg/dL Estimated GFR ml/min BUN/Creatinine Ratio % Glucose (65-100) mg/dL Calcium (8.4-10.2) mg/dL Troponin T (0.00-0.029) ng/mL - EKG Data -: EKG Interpreted by 11/09/18 16:12 This is a bradycardic rhythm, sinus, 56 bpm, left axis deviation, left anterior fascicular block, low voltage, left ventricular hypertrophy, motion artifact, not having chest pain, not consistent with ST elevation myocardial infarction. - Radiology Data Radiology results: report reviewed, image reviewed Noncontrast CT scan of the brain is negative for acute disease - Thrombolytic Inclusion/Exclusion Thrombolytic Contraindications: Rapidily Improving s/s Critical care attestation.: If time is entered above; I have spent that time in minutes in the direct care of this critically ill patient, excluding procedure time. ED Disposition Clinical Impression: TIA (transient ischemic attack) Disposition: OP ADMIT IP TO THIS HOSP Is pt being admited?: Yes Condition: Stable
--- NOTE | 2018-11-09 15:52 | Cat Scan Report ---
PROCEDURE: CT HEAD/BRAIN WO CON TECHNIQUE: CT examination of the head without IV contrast HISTORY: neuro deficits <6hrs or sx present upon awakening COMPARISONS: None FINDINGS: Nonspecific multifocal opacity in the left mastoid air cells. Right mastoid air cells clear. Middle e ar cavities clear. Included paranasal sinuses are clear. No acute air-fluid level visualized in the i ncluded air-filled sinuses. Bone windows demonstrate no acute fracture. There is ventricular and sulcal prominence compatible with global cerebrocortical atrophy. Low attenuation regions in the cerebral white matter, while nonspecific, are present and usually attr ibuted to chronic ischemic gliosis. It can occur secondary to the normal aging process, hypertension, or arterial sclerotic vascular dise ase. The differential includes demyelination in the appropriate clinical setting. The brain contains no mass, mass effect, hemorrhage, or acute infarct. There is no extra-axial intracranial bleed or brain bleed. There is no midline shift. IMPRESSION: No acute CVA, intracranial bleed, or brain mass Nonspecific left mastoid air cell opacification may reflect eustachian tube dysfunction. Differential includes left mastoiditis, This document is electronically signed by Vitor Roper MD., Nov 09 2018 03:49:50 PM ET
[2018-11-09 16:06] LABS: Basophils # (Auto) 0.1 K/mm3 (0.0-0.1); Basophils % (Auto) 1.3 % (0.0-1.8); Eosinophils # (Auto) 0.1 K/mm3 (0.0-0.4); Eosinophils % (Auto) 2.1 % (0.0-4.3); Hematocrit 41.4 % (30.3-42.9); Hemoglobin 13.6 gm/dl (10.1-14.3); Lymphocytes # (Auto) 2.1 K/mm3 (1.2-5.4); Lymphocytes % (Auto) 37.2 % (13.4-35.0); Mean Corpuscular HGB Conc 33 % (30-34); Mean Corpuscular Volume 91 fl (79-97); Monocytes # (Auto) 0.4 K/mm3 (0.0-0.8); Monocytes % (Auto) 7.9 % (0.0-7.3); Platelet Count 209 K/mm3 (140-440); Red Blood Count 4.53 M/mm3 (3.65-5.03); Red Cell Distribution Width 14.3 % (13.2-15.2)
[2018-11-09 16:17] LABS: INR 0.94 (0.87-1.13)
[2018-11-09 16:18] LABS: Partial Thromboplastin Time 30.5 Sec. (24.2-36.6)
[2018-11-09 16:24] LABS: BUN/Creatinine Ratio 11; Blood Urea Nitrogen 9 mg/dL (7-17); Hemolysis Index 2
--- NOTE | 2018-11-09 16:31 | Emergency Department Report ---
ED Neuro Deficit HPI - General Chief Complaint: Weakness Stated Complaint: SICK Time Seen by Provider: 11/09/18 15:13 Source: patient, RN notes reviewed, old records reviewed Mode of arrival: Ambulatory Limitations: No Limitations, Physical Limitation - History of Present Illness Initial Comments: [facility] Date of service: 11/09/18 Impression: acute, transient right sided weakness - now resolved. NIHSS 2 for right arm and leg weakness, but the patient is at baseline per her and her daughter. Concerning for TIA. Recommend admission for stroke workup. - - - Not a tpa candidate due to: back to baseline. Presentation is not suggestive of Large Vessel Occlusive Disease. Thrombectomy would not be recommended. Differential Diagnosis: 1. Cardioembolic stroke 2. Small vessel disease/lacune 3. Thromboembolic, [id number] mechanism 4. Hypercoagulable state-related infarct 5. Transient ischemic attack 6. Thrombotic mechanism, large artery disease Comments: Door time: 1504 [employer] contacted: 1529 [employer] at bedside: 1535 NIHSS assessment time: 1538 Recommendations: tele ASA if CT head is neg for hemorrhage - none per my read DVT proph - lovenox permissive htn PT/OT/speech bedside swallow eval Inpatient neurology consultation Inpatient stroke evaluation as per Neurology/ Internal Medicine Discussed with ED MD Please call with questions CC transient right arm weakness History of Present Illness Patient is a yo woman with acute, transient right arm weakness starting at approx 1400 and lasting for approx 30-45 minutes. No LOC/convulsion. No blood thinners. No trouble speaking/swallowing. Diagnostic: CT head neg for hemorrhage per my read. Exam: RESULT SUMMARY: 2 points NIH Stroke Scale INPUTS: 1A: Level of consciousness > 0 = Alert; keenly responsive 1B: Ask month and age > 0 = Both questions right 1C: 'Blink eyes' & 'squeeze hands' > 0 = Performs both tasks 2: Horizontal extraocular movements > 0 = Normal 3: Visual burger > 0 = No visual loss 4: Facial palsy > 0 = Normal symmetry 5A: Left arm motor drift > 0 = No drift for 10 seconds 5B: Right arm motor drift > 1 = Drift, but doesn't hit bed 6A: Left leg motor drift > 0 = No drift for 5 seconds 6B: Right leg motor drift > 1 = Drift, but doesn't hit bed 7: Limb Ataxia > 0 = No ataxia 8: Sensation > 0 = Normal; no sensory loss 9: Language/aphasia > 0 = Normal; no aphasia 10: Dysarthria > 0 = Normal 11: Extinction/inattention > 0 = No abnormality Medical Decision Making: - Extensive number of diagnosis or management options are considered above. - Extensive amount of complex data reviewed. - High risk of complication and/or morbidity or mortality are associated with differential diagnostic considerations above. - There may be Uncertain outcome and increased probability of prolonged functional impairment or high probability of severe prolonged functional impairment associated with some of these differential diagnosis. Medical Data Reviewed: 1.Data reviewed include clinical labs, radiology, Medical Tests; 2.Tests results discussed w/performing or interpreting physician; 3.Obtaining/reviewing old medical records; 4.Obtaining case history from another source; 5.Independent review of image, tracing or specimen. Patient was informed the Neurology Consult would happen via telehealth (remote video) and consented to receiving care in this manner. Location: right arm History of same: No Place: work Severity: mild, moderate Quality: weak Improves With: rest Worsens With: medication On Anticoagulants: Yes (patient taking aspirin) - Related Data Home Medications: Home Medications Medication Instructions Recorded Confirmed Last Taken Aspirin EC [Aspirin Enteric Coated 325 mg PO DAILY 11/14/14 03/22/17 11/14/14 05:15 TAB] Furosemide 40 mg PO DAILY 11/14/14 03/22/17 11/14/14 Metoprolol Tartrate 25 mg PO BID 11/14/14 03/22/17 11/14/14 Potassium Chloride [Klor-Con M20] 20 meq PO DAILY 11/14/14 03/22/17 11/14/14 Rasagiline Mesylate (Nf) [Azilect 0.5 mg PO DAILY 11/14/14 03/22/17 11/14/14 (Nf)] Carbidopa/Levodopa 25-100 [Sinemet 25 - 100 mg PO BID 03/23/17 03/23/17 Unknown 25/100] Previous Rx's Medication Instructions Recorded Last Taken Type Carbidopa/Levodopa 25-100 [Sinemet 1 each PO BID #1 tablet 03/24/17 Unknown Rx 25100] Ondansetron [Zofran Odt] 4 mg PO Q8HR #30 tab.rapdis 03/24/17 Unknown Rx traMADol [Ultram] 50 mg PO Q6HR PRN #14 tablet 03/24/17 Unknown Rx Allergies/Adverse Reactions: Allergies Allergy/AdvReac Type Severity Reaction Status Date / Time Penicillins Allergy Severe Hives Verified 03/22/17 17:36 ED Review of Systems ROS: Stated complaint: SICK Other details as noted in HPI Constitutional: denies: fever Eyes: denies: eye discharge ENT: denies: epistaxis Respiratory: denies: cough Cardiovascular: denies: chest pain Gastrointestinal: denies: abdominal pain Genitourinary: denies: urgency, dysuria Musculoskeletal: back pain, arthralgia, myalgia Skin: denies: lesions Neurological: weakness, numbness, paresthesias ED Past Medical Hx - Past Medical History Hx Hypertension: Yes (2009) Hx Heart Attack/AMI: No Hx Congestive Heart Failure: Yes Hx Arthritis: Yes Hx COPD: Yes Additional medical history: parkinsons - Surgical History Hx Open Heart Surgery: Yes (12/09/94) Hx Cholecystectomy: Yes (2004) - Social History Smoking Status: Never Smoker Substance Use Type: None - Medications Home Medications: Home Medications Medication Instructions Recorded Confirmed Last Taken Type Aspirin EC [Aspirin Enteric Coated 325 mg PO DAILY 11/14/14 03/22/17 11/14/14 05:15 History TAB] Furosemide 40 mg PO DAILY 11/14/14 03/22/17 11/14/14 History Metoprolol Tartrate 25 mg PO BID 11/14/14 03/22/17 11/14/14 History Potassium Chloride [Klor-Con M20] 20 meq PO DAILY 11/14/14 03/22/17 11/14/14 History Rasagiline Mesylate (Nf) [Azilect 0.5 mg PO DAILY 11/14/14 03/22/17 11/14/14 History (Nf)] Carbidopa/Levodopa 25-100 [Sinemet 25 - 100 mg PO BID 03/23/17 03/23/17 Unknown History 25/100] Carbidopa/Levodopa 25-100 [Sinemet 1 each PO BID #1 tablet 03/24/17 Unknown Rx ] Ondansetron [Zofran Odt] 4 mg PO Q8HR #30 tab.rapdis 03/24/17 Unknown Rx traMADol [Ultram] 50 mg PO Q6HR PRN #14 tablet 03/24/17 Unknown Rx ED Neuro Physical Exam - General Limitations: No Limitations, Physical Limitation Suspected Stroke: Yes - NIHSS Assessment Interval: Baseline 1a. Level of Consciousness: alert/keenly responsive 1b. LOC Questions: answers both correctly 1c. LOC Commands: performs tasks correctly 2. Best Gaze: normal 3. Visual: no visual loss 4. Facial Palsy: normal symmetrical movement 5b. Motor Arm Right: drift 5a. Motor Arm Left: no drift 6a. Motor Leg Left: drift 6b. Motor Leg Right: no drift 7. Limb Ataxia: absent 8. Sensory: normal 9. Best Language: no aphasia 10. Dysarthria: normal 11. Extinction/Inattention: no abnormality Total Score: 2 Stroke Severity: Minor Stroke ED Course Vital Signs 11/09/18 15:14 Temperature 98.6 F Pulse Rate 62 Respiratory 18 Rate Blood Pressure 135/82 O2 Sat by Pulse 98 Oximetry - Lab Data Result diagrams: 11/09/18 15:55 11/09/18 15:55 Lab Results 11/09/18 11/09/18 11/09/18 Range/Units 15:55 15:55 15:55 WBC 5.6 (4.5-11.0) K/mm3 RBC 4.53 (3.65-5.03) M/mm3 Hgb 13.6 (10.1-14.3) gm/dl Hct 41.4 (30.3-42.9) % MCV 91 (79-97) fl MCH 30 (28-32) pg MCHC 33 (30-34) % RDW 14.3 (13.2-15.2) % Plt Count 209 (140-440) K/mm3 Lymph % (Auto) 37.2 H (13.4-35.0) % [place] % (Auto) 7.9 H (0.0-7.3) % Eos % (Auto) 2.1 (0.0-4.3) % Baso % (Auto) 1.3 (0.0-1.8) % Lymph # 2.1 (1.2-5.4) K/mm3 [place] # 0.4 (0.0-0.8) K/mm3 Eos # 0.1 (0.0-0.4) K/mm3 Baso # 0.1 (0.0-0.1) K/mm3 Seg Neutrophils % 51.5 (40.0-70.0) % Seg Neutrophils # 2.9 (1.8-7.7) K/mm3 PT 13.1 (12.2-14.9) Sec. INR 0.94 (0.87-1.13) APTT 30.5 (24.2-36.6) Sec. Thrombin Time (15.1-19.6) Sec. Sodium 143 (137-145) mmol/L Potassium 3.6 (3.6-5.0) mmol/L Chloride 105.3 (98-107) mmol/L Carbon Dioxide 29 (22-30) mmol/L Anion Gap 12 mmol/L BUN 9 (7-17) mg/dL Creatinine 0.8 (0.7-1.2) mg/dL Estimated GFR > 60 ml/min BUN/Creatinine Ratio 11 % Glucose 81 (65-100) mg/dL Calcium 9.0 (8.4-10.2) mg/dL Troponin T < 0.010 (0.00-0.029) ng/mL 11/09/18 Range/Units 15:55 WBC (4.5-11.0) K/mm3 RBC (3.65-5.03) M/mm3 Hgb (10.1-14.3) gm/dl Hct (30.3-42.9) % MCV (79-97) fl MCH (28-32) pg MCHC (30-34) % RDW (13.2-15.2) % Plt Count (140-440) K/mm3 Lymph % (Auto) (13.4-35.0) % [place] % (Auto) (0.0-7.3) % Eos % (Auto) (0.0-4.3) % Baso % (Auto) (0.0-1.8) % Lymph # (1.2-5.4) K/mm3 [place] # (0.0-0.8) K/mm3 Eos # (0.0-0.4) K/mm3 Baso # (0.0-0.1) K/mm3 Seg Neutrophils % (40.0-70.0) % Seg Neutrophils # (1.8-7.7) K/mm3 PT (12.2-14.9) Sec. INR (0.87-1.13) APTT (24.2-36.6) Sec. Thrombin Time 17.9 (15.1-19.6) Sec. Sodium (137-145) mmol/L Potassium (3.6-5.0) mmol/L Chloride (98-107) mmol/L Carbon Dioxide (22-30) mmol/L Anion Gap mmol/L BUN (7-17) mg/dL Creatinine (0.7-1.2) mg/dL Estimated GFR ml/min BUN/Creatinine Ratio % Glucose (65-100) mg/dL Calcium (8.4-10.2) mg/dL Troponin T (0.00-0.029) ng/mL Critical care attestation.: If time is entered above; I have spent that time in minutes in the direct care of this critically ill patient, excluding procedure time. ED Disposition Clinical Impression: TIA (transient ischemic attack) Disposition: 09 OP ADMIT IP TO THIS HOSP Is pt being admited?: Yes Condition: Stable
[2018-11-09] MEDS ORDERED: BABY ASPIRIN PO ONE (16:57)
[2018-11-09] MEDS ORDERED: TYLENOL PO ONE (16:57)
[2018-11-09] MEDS ORDERED: MILK OF MAGNESIA PO PRN (17:11)
[2018-11-09] MEDS ORDERED: TYLENOL PO PRN (17:11)
[2018-11-09] MEDS ORDERED: PHENERGAN PR PRN (17:11)
[2018-11-09] MEDS ORDERED: DULCOLAX PR PRN (17:11)
[2018-11-09] MEDS ORDERED: SODIUM CHLORIDE FLUSH SYRINGE 10 ML IV PRN (17:11)
[2018-11-09] MEDS ORDERED: ZOFRAN IV PRN (17:11)
[2018-11-09] MEDS ORDERED: REGLAN PO PRN (17:11)
--- NOTE | 2018-11-09 17:11 | History and Physical Report ---
History of Present Illness Chief complaint: I feel weak on my right side History of present illness: 77 YO Female with Parkinsons Disease, OA, COPD, HTN, CAD S/P CABG presents to ED for evaluation. Pt states that she experienced sudden onset of weakness on her right side. 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 Pt waited several hours for symptoms to resolve without relies. Pt subsequently became concerned and decided to seek medical attention. Pt was transported to [facility] via private vehicle. Pt seen and evaluated in ED and found to have symptoms consistent with CVA. Pt is outside therapeutic window for TPA at time of my exam. Pt initiated on CVA protocol and admitted to telemetry. Neurology consulted in ED. Pt denies fever, chills, CP, Palpitations, NVD, Trauma, productive cough, skin rash, vertigo, seizures, headache, or recent ill contacts. Prior admission on 03/22/17 reviewed. Nol listed medication for r econciliation at time of admission. 30 minutes additional care spent discussing care plan with patient and daughter who is at bedside during exam and interview. Pt and family acknowledge understanding and agreement with care plan. Primary care Dr.: Dr. Barrera Past History Past Medical History: CAD, COPD, diabetes, hypertension Past Surgical History: cholecystectomy, CABG Social history: . denies: smoking, alcohol abuse, prescription drug abuse Family history: CAD, hypertension Medications and Allergies Allergies Allergy/AdvReac Type Severity Reaction Status Date / Time Penicillins Allergy Severe Hives Verified 03/22/17 17:36 Home Medications Medication Instructions Recorded Confirmed Last Taken Type Carbidopa/Levodopa 25-100 [Sinemet 25 - 100 mg PO TID 03/23/17 11/09/18 Unknown History 25/100] Amlodipine Besylate [Norvasc] 2.5 mg PO DAILY 11/09/18 11/09/18 Unknown History DULoxetine [Cymbalta] 30 mg PO DAILY 11/09/18 11/09/18 Unknown History Metoprolol Xl [Metoprolol 50 mg PO DAILY 11/09/18 11/09/18 Unknown History SUCCINATE ER TAB] Review of Systems Constitutional: no weight loss, no weight gain, no fever, no chills Ears, nose, mouth and throat: no tinnitis, no decreased hearing, no nose pain Breasts: no change in shape, no swelling Cardiovascular: no chest pain, no orthopnea, no palpitations, no rapid/irregular heart beat, no edema, no lightheadedness Respiratory: no cough, no cough with sputum, no excessive sputum, no hemoptysis, no dyspnea on exertion Gastrointestinal: no abdominal pain, no nausea, no vomiting, no diarrhea, no constipation, no change in bowel habits Genitourinary Female: no pelvic pain, no flank pain, no dysuria Rectal: no pain, no incontinence, no bleeding Musculoskeletal: no neck stiffness, no neck pain, no shooting arm pain, no arm numbness/tingling, no low back pain Integumentary: no rash, no pruritis, no redness, no sores, no wounds Neurological: weakness, numbness, ataxia, gait dysfunction, motor disturbance, no transient paralysis, no seizures, no syncope, no change in mentation Psychiatric: no memory loss, no change in sleep habits, no sleep disturbances, no insomnia, no hypersomnia, no change in appetite Endocrine: no cold intolerance, no heat intolerance, no polyphagia Hematologic/Lymphatic: no easy bruising, no easy bleeding, no lymphadenopathy, no lymphedema Allergic/Immunologic: no wheezing, no persistent infections, no anaphylaxis, no angioedema Exam - Constitutional Vitals: Temp Pulse Resp BP Pulse Ox 98.6 F 58 L 20 179/98 98 11/09/18 15:14 11/09/18 16:45 11/09/18 16:45 11/09/18 16:45 11/09/18 16:45 General appearance: Present: mild distress - EENT Eyes: Present: PERRL ENT: hearing intact, clear oral mucosa - Neck Neck: Present: supple, normal ROM - Respiratory Respiratory effort: normal Respiratory: bilateral: CTA - Cardiovascular Heart Sounds: Present: S1 & S2. Absent: rub, click - Extremities Extremities: pulses symmetrical, No edema Peripheral Pulses: within normal limits - Abdominal General gastrointestinal: Present: soft, non-tender, non-distended, normal bowel sounds Female genitourinary: Present: normal - Integumentary Integumentary: Present: clear, warm, dry - Musculoskeletal Musculoskeletal: left sided weakness - Psychiatric Psychiatric: appropriate mood/affect, intact judgment & insight - Neurologic Neurologic: CNII-XII intact, moves all extremities, no gait normal Results - Labs CBC & Chem 7: 11/09/18 15:55 11/09/18 15:55 Labs: Abnormal lab results 11/09/18 Range/Units 15:55 Lymph % (Auto) 37.2 H (13.4-35.0) % [place] % (Auto) 7.9 H (0.0-7.3) % Assessment and Plan - Patient Problems (1) CVA (cerebral vascular accident) Current Visit: Yes Status: Acute Qualifiers: Precerebral and cerebral artery: middle cerebral artery Laterality of affected vessel: left Plan to address problem: Stroke Protocol: Admit to telemetry, CT Head, MRI Brain, MRA Brain, Neurology consulted, antiplatelet therapy, lipid panel, PT/OT/Speech therapy, Neuro chec ks, seizure precautions, fall precautions. (2) Diabetes Current Visit: Yes Status: Acute Plan to address problem: ADA diet, insulin, accu check (3) HTN (hypertension) Current Visit: Yes Status: Acute Qualifiers: Hypertension type: essential hypertension Qualified Code(s): I10 - Essential (primary) hypertension Plan to address problem: Monitor BP q shift, permissive HTN overnight, continue medical management. (4) CAD (coronary artery disease) Current Visit: Yes Status: Acute Qualifiers: Associated angina: without angina Plan to address problem: risk factor reduction, low cholesterol diet, statin therapy (5) COPD (chronic obstructive pulmonary disease) Current Visit: Yes Status: Acute Qualifiers: Chronic bronchitis type: mixed simple and mucopurulent Plan to address problem: Supplemental oxygen, chest x ray, pulmonary toilet, incentive spirometry, early ambulation, NIPPV as clinically indicated (6) DVT prophylaxis Current Visit: Yes Status: Acute Plan to address problem: SCD to BLE while in bed, prophylactic lovenox
[2018-11-09] MEDS ORDERED: ULTRAM PO PRN (17:19)
[2018-11-09] MEDS: SINEMET PO SCH (21:37)
[2018-11-09] MEDS: LOPRESSOR PO SCH ×2 (21:37→23:24)
[2018-11-09] MEDS: ZOFRAN ODT PO SCH (21:43)
[2018-11-10 06:02] LABS: Chol/HDL Ratio 1.67 %
[2018-11-10] MEDS: ZOFRAN ODT PO SCH ×3 (06:12→21:55)
[2018-11-10] MEDS ORDERED: NON-FORMULARY (Amlodipine Besylate [Norvasc] 2.5 MG) PO SCH (10:00)
[2018-11-10] MEDS ORDERED: RASAGILINE MESYLATE 0.5 MG PO SCH (10:00)
--- NOTE | 2018-11-10 10:01 | Progress Note ---
Assessment and Plan Assessment and plan: Patient is 77 yo woman with a history of Parkinsons Disease, OA with a wheel 4 legged walker, COPD, HTN, CAD S/P CABG and diet controlled type 2 dm who presented to [facility] ED with right sided weakness. CT head showed no acute intra- cranial finding, left mastoid opaficivation, either Eustachian tube dysfunction or left mastoiditis. -Right sided weakness, stroke work-up in progress, MRI brain pending, Carotid Doppler pending==>if those are negative then most likely right shoulder OA related (h/o past steroids injection in that shoulder) -Hypertension -PD by history -h/o COPD -h/o CAD -DVT prophylaxis on sq lovenox full code home rec done disposition: if mri brain and carotid negative will discharge. echo, mri brain, carotid doppler pending, I have asked to nurse to page me with those results. History Interval history: Patient was seen and examined. Follow-up on current diagnosis of right sided weakness. Overnight uneventful. Patient denies any chest pain, shortness of breath, nausea/vomiting or severe headaches. Imaging, nursing note, chart, labs and old chart reviewed. Discussed with patient. Daughter in law Ruchi at bedside. Patient has a "bad right shoulder" Hospitalist Physical - Physical exam Narrative exam: GEN: WDWN, NAD, Awake, Alert, Orientated HEENT: NCAT, mask face, EOMI, PERRL, OP Clear NECK: supple, no adenopathy, no thyromegaly, no JVD CVS/HEART: RRR, normal S1S2, pulses present bilaterally CHEST/LUNGS: CTA B, Symmetrical chest expansion, good air entry bilaterally GI/Abdomen: soft, NTND, good bowel sounds, no guarding or rebound /Bladder: no suprapubic tenderness, no CVA or paraspinal tenderness EXT/Skin: no c/c/e, no obvious rash MSK: FROM x 4 except right shoulder Neuro: CN 2-12 grossly intact, no new focal deficits, resting tremor, no significant cogwheel rigidity Psych: calm - Constitutional Vitals: Temp Pulse Resp BP Pulse Ox 98.4 F 52 L 18 160/90 93 11/10/18 08:06 11/10/18 05:55 11/10/18 08:06 11/10/18 08:06 11/10/18 03:59 General appearance: Absent: mild distress Results - Labs CBC & Chem 7: 11/09/18 15:55 11/09/18 15:55 Labs: Laboratory Last Values WBC 5.6 K/mm3 (4.5-11.0) 11/09/18 15:55 RBC 4.53 M/mm3 (3.65-5.03) 11/09/18 15:55 Hgb 13.6 gm/dl (10.1-14.3) 11/09/18 15:55 Hct 41.4 % (30.3-42.9) 11/09/18 15:55 MCV 91 fl (79-97) 11/09/18 15:55 MCH 30 pg (28-32) 11/09/18 15:55 MCHC 33 % (30-34) 11/09/18 15:55 RDW 14.3 % (13.2-15.2) 11/09/18 15:55 Plt Count 209 K/mm3 (140-440) 11/09/18 15:55 Lymph % (Auto) 37.2 % (13.4-35.0) H 11/09/18 15:55 [place] % (Auto) 7.9 % (0.0-7.3) H 11/09/18 15:55 Eos % (Auto) 2.1 % (0.0-4.3) 11/09/18 15:55 Baso % (Auto) 1.3 % (0.0-1.8) 11/09/18 15:55 Lymph # 2.1 K/mm3 (1.2-5.4) 11/09/18 15:55 [place] # 0.4 K/mm3 (0.0-0.8) 11/09/18 15:55 Eos # 0.1 K/mm3 (0.0-0.4) 11/09/18 15:55 Baso # 0.1 K/mm3 (0.0-0.1) 11/09/18 15:55 Seg Neutrophils % 51.5 % (40.0-70.0) 11/09/18 15:55 Seg Neutrophils # 2.9 K/mm3 (1.8-7.7) 11/09/18 15:55 PT 13.1 Sec. (12.2-14.9) 11/09/18 15:55 INR 0.94 (0.87-1.13) 11/09/18 15:55 APTT 30.5 Sec. (24.2-36.6) 11/09/18 15:55 Thrombin Time 17.9 Sec. (15.1-19.6) 11/09/18 15:55 Sodium 143 mmol/L (137-145) 11/09/18 15:55 Potassium 3.6 mmol/L (3.6-5.0) 11/09/18 15:55 Chloride 105.3 mmol/L (98-107) 11/09/18 15:55 Carbon Dioxide 29 mmol/L (22-30) 11/09/18 15:55 Anion Gap 12 mmol/L 11/09/18 15:55 BUN 9 mg/dL (7-17) 11/09/18 15:55 Creatinine 0.8 mg/dL (0.7-1.2) 11/09/18 15:55 Estimated GFR > 60 ml/min 11/09/18 15:55 BUN/Creatinine Ratio 11 % 11/09/18 15:55 Glucose 81 mg/dL (65-100) 11/09/18 15:55 Calcium 9.0 mg/dL (8.4-10.2) 11/09/18 15:55 Troponin T < 0.010 ng/mL (0.00-0.029) 11/09/18 15:55 NT-Pro-B Natriuret Pep 398.8 pg/mL (0-900) 11/09/18 17:30 Triglycerides 50 mg/dL (2-149) 11/10/18 04:18 Cholesterol 152 mg/dL (50-199) 11/10/18 04:18 LDL Cholesterol Direct 65 mg/dL (50-130) 11/10/18 04:18 HDL Cholesterol 91 mg/dL (40-59) H 11/10/18 04:18 Cholesterol/HDL Ratio 1.67 % 11/10/18 04:18 Active Medications - Current Medications Current Medications: Generic Name Dose Route Start Last Admin Trade Name Freq PRN Reason Stop Dose Admin Acetaminophen 650 mg 11/09/18 17:11 Tylenol PO Q4H PRN Pain, Mild (1-3) Aspirin 325 mg 11/10/18 10:00 Ecotrin PO DAILY DAPHNIE Bisacodyl 10 mg 11/09/18 17:11 Dulcolax MN QDAY PRN Constipation Carbidopa/Levodopa 1 each 11/09/18 22:00 11/09/18 21:37 Sinemet PO 1 each BID [facility] Administration Duloxetine HCl 30 mg 11/10/18 10:00 Cymbalta PO DAILY [facility] Enoxaparin Sodium 40 mg 11/10/18 22:00 Lovenox SUB-Q QDAY@2200 [facility] Furosemide 40 mg 11/10/18 10:00 Lasix PO DAILY [facility] Magnesium Hydroxide 30 ml 11/09/18 17:11 Milk Of Magnesia PO Q4H PRN Constipation Metoclopramide HCl 10 mg 11/09/18 17:11 Reglan PO Q6H PRN Nausea And Vomiting Metoprolol Succinate 50 mg 11/10/18 10:00 Toprol Xl PO DAILY [facility] Metoprolol Tartrate 25 mg 11/09/18 22:00 11/09/18 23:24 Lopressor PO Not Given BID [facility] Miscellaneous Medication 0.5 mg 11/10/18 10:00 Rasagiline Mesylate (Nf) PO DAILY [facility] Miscellaneous Medication 2.5 mg 11/10/18 10:00 Amlodipine Besylate [Norvasc] PO DAILY [facility] Ondansetron HCl 4 mg 11/09/18 17:11 Zofran IV Q8H PRN Nausea And Vomiting Ondansetron HCl 4 mg 11/09/18 22:00 11/10/18 06:12 Zofran Odt PO Not Given Q8HR [facility] Potassium Chloride 20 meq 11/10/18 10:00 K-Dur PO DAILY [facility] Promethazine HCl 25 mg 11/09/18 17:11 Phenergan MN Q6H PRN Nausea And Vomiting Sodium Chloride 10 ml 11/09/18 17:11 Sodium Chloride Flush Syringe 10 Ml IV PRN PRN LINE FLUSH Tramadol HCl 50 mg 11/09/18 17:19 Ultram PO Q6HR PRN Pain
[2018-11-10] MEDS: ECOTRIN PO SCH (12:31)
[2018-11-10] MEDS: K-DUR PO SCH (12:32)
[2018-11-10] MEDS: CYMBALTA PO SCH (12:32)
[2018-11-10] MEDS: SINEMET PO SCH ×2 (12:32→21:55)
[2018-11-10] MEDS: TOPROL XL PO SCH (12:32)
[2018-11-10] MEDS: LOPRESSOR PO SCH ×2 (12:33→21:55)
[2018-11-10] MEDS: LASIX PO SCH (12:33)
[2018-11-10] MEDS: NORVASC PO SCH (12:35)
--- NOTE | 2018-11-10 13:06 | Magnetic Resonance Report ---
MRI BRAIN WITHOUT CONTRAST INDICATION: Stroke. COMPARISON: 11/09/2018 CT. FINDINGS: Noncontrast multiplanar and multisequence MRI of the brain demonstrates symmetric, age-appropriate, mildly enlarged ventricles and sulci. [id number] periventricular and few white matter FLAIR and T2 weighted hyperintensities. No definite acute infarct, hemorrhage mass effect or midline shift. No abnormal extra axial masses or fluid collections. Normal major intracranial vascular flow voids. Normal can sealer fossa with preserved basilar cisterns and symmetric seventh and eighth nerve complexes. Normal imaged eye globes. Mild left frontal sinus mucosal thickening. Clear remainder imaged anterior paranasal sinuses and left mastoid air cells. Extensive left mastoiditis. Normal midline structures without evidence of Chiari malformation. CONCLUSION: Severe left mastoiditis, age-appropriate atrophy and microvascular changes without acute infarction, as described. Please correlate. Thank you for the opportunity to participate in this patient's care.
--- NOTE | 2018-11-10 13:10 | Magnetic Resonance Report ---
MRA HEAD WITHOUT CONTRAST INDICATION: Stroke. COMPARISON: None similar. FINDINGS: MRA of the head performed without intravenous contrast and demonstrates no evidence of flow-limiting stenosis or occlusion. Slight ectasia/fusiform caliber prominence of the right ICA at its anterior turn not entirely excluded as on source series 3, images 45-48. 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 Please note that detection of aneurysms less than 5 mm is limited on this exam. CONCLUSION: Findings, as above. Please correlate. Thank you for the opportunity to participate in this patient's care.
--- NOTE | 2018-11-10 17:54 | Consultation ---
History of Present Illness Consult date: 11/10/18 Chief complaint: radiating pain in the left arm History of present illness: This is a 77 YO F with history of PD who presented to the ED with radiating pain in her right arm. Says she has a history of arthritis in her neck. Never had pain like that before. Says her shoulder is bad but she could not use her right hand. It's better now but not back to baseline. Denied any recent trauma, etc. Past History Past Medical History: CAD, COPD, diabetes, hypertension Past Surgical History: cholecystectomy, CABG Social history: . denies: smoking, alcohol abuse, prescription drug abuse Family history: CAD, hypertension Medications and Allergies Allergies Allergy/AdvReac Type Severity Reaction Status Date / Time Penicillins Allergy Severe Hives Verified 03/22/17 17:36 Home Medications Medication Instructions Recorded Confirmed Last Taken Type Carbidopa/Levodopa 25-100 [Sinemet 25 - 100 mg PO TID 03/23/17 11/09/18 Unknown History 25/100] Amlodipine Besylate [Norvasc] 2.5 mg PO DAILY 11/09/18 11/09/18 Unknown History DULoxetine [Cymbalta] 30 mg PO DAILY 11/09/18 11/09/18 Unknown History Metoprolol Xl [Metoprolol 50 mg PO DAILY 11/09/18 11/09/18 Unknown History SUCCINATE ER TAB] Active Meds: Active Medications Acetaminophen (Tylenol) 650 mg PO Q4H PRN PRN Reason: Pain, Mild (1-3) Amlodipine Besylate (Norvasc) 2.5 mg PO QDAY [facility] Last Admin: 11/10/18 12:35 Dose: 2.5 mg Documented by: Aspirin (Ecotrin) 325 mg PO DAILY [facility] Last Admin: 11/10/18 12:31 Dose: 325 mg Documented by: Bisacodyl (Dulcolax) 10 mg [place] QDAY PRN PRN Reason: Constipation Carbidopa/Levodopa (Sinemet) 1 each PO BID [facility] Last Admin: 11/10/18 12:32 Dose: 1 each Documented by: Duloxetine HCl (Cymbalta) 30 mg PO DAILY [facility] Last Admin: 11/10/18 12:32 Dose: 30 mg Documented by: Enoxaparin Sodium (Lovenox) 40 mg SUB-Q QDAY@2200 [facility] Furosemide (Lasix) 40 mg PO DAILY [facility] Last Admin: 11/10/18 12:33 Dose: 40 mg Documented by: Magnesium Hydroxide (Milk Of Magnesia) 30 ml PO Q4H PRN PRN Reason: Constipation Metoclopramide HCl (Reglan) 10 mg PO Q6H PRN PRN Reason: Nausea And Vomiting Metoprolol Succinate (Toprol Xl) 50 mg PO DAILY [facility] Last Admin: 11/10/18 12:32 Dose: 50 mg Documented by: Metoprolol Tartrate (Lopressor) 25 mg PO BID [facility] Last Admin: 11/10/18 12:33 Dose: 25 mg Documented by: Miscellaneous Medication (Rasagiline Mesylate (Nf)) 0.5 mg PO DAILY [facility] Ondansetron HCl (Zofran) 4 mg IV Q8H PRN PRN Reason: Nausea And Vomiting Ondansetron HCl (Zofran Odt) 4 mg PO Q8HR [facility] Last Admin: 11/10/18 12:32 Dose: Not Given Documented by: Potassium Chloride (K-Dur) 20 meq PO DAILY [facility] Last Admin: 11/10/18 12:32 Dose: 20 meq Documented by: Promethazine HCl (Phenergan) 25 mg [place] Q6H PRN PRN Reason: Nausea And Vomiting Sodium Chloride (Sodium Chloride Flush Syringe 10 Ml) 10 ml IV PRN PRN PRN Reason: LINE FLUSH Tramadol HCl (Ultram) 50 mg PO Q6HR PRN PRN Reason: Pain Review of Systems Musculoskeletal: arm numbness/tingling Physical Examination - Vital Signs Vital Signs: Vital Signs Temp Pulse Resp BP Pulse Ox 98.6 F 62 18 135/82 98 11/09/18 15:14 11/09/18 15:14 11/09/18 15:14 11/09/18 15:14 11/09/18 15:14 - Constitutional General appearance: comfortable - EENT EENT: Present: mucous membranes moist - Respiratory Respiratory: Present: lungs clear - Cardiovascular Extremities: Present: no peripheral edema bilatateraly - Gastrointestinal Gastrointestinal: Present: normoactive bowel sounds - Neurologic Cranial nerve examination: PERRL, EOMI, V1/V2/V3 grossly intact, face symmetric, tongue midline Speech examination: intact Detailed motor examination: grossly full strength in Reflex and gait examination: intact Reflexes: 0: ankle, bicep, knee, tricep - Additional Exam Additional Exam: resting tremor in the UE bilaterally , left> r, masked facies Results - Laboratory Findings CBC and BMP: 11/09/18 15:55 11/09/18 15:55 Abnormal Lab Findings: Abnormal Labs 11/09/18 11/10/18 15:55 04:18 Lymph % (Auto) 37.2 H [place] % (Auto) 7.9 H HDL Cholesterol 91 H - Diagnostic Findings Additional findings: MRI Brain no acute ischemia MRA head- slight caliber prominence of R ICA Assessment and Plan This is a 77 YO F with likely cervical radiculopathy on the right. H/O PD. finding on MRA unlikely clinically significant. REcommend: MRI cervical spine Follow up with vascular regarding the MRA finding PRN analgesics for pain Continue current meds for PD COntinue care for all medical issues as you are doing
--- NOTE | 2018-11-10 19:03 | Vascular Lab Report ---
EXAM: VL CAROTID DUPLEX BILAT HISTORY: stroke TECHNIQUE: The carotid arteries and vertebral arteries were interrogated with a high-frequency linear transducer, employing grayscale imaging, duplex Doppler and color flow Doppler imaging. COMPARISON: None available. FINDINGS: The common carotid arteries and carotid bulbs appear widely patent on grayscale imaging. There is no significant mural plaque formation in the carotid bulb and no critical luminal narrowing is seen. Carotid velocities are as follows: RIGHT LEFT Distal CCA: 67 cm/s 54 cm/s Distal ICA: 84 cm/s 86 cm/s ICA/CCA ratio: 1.25 0.7 The above findings constitute bilateral mild (less than 50%); no hemodynamically significant ICA orig in stenosis. There is no hemodynamically significant ECA stenosis. Both vertebral arteries are patent and demonstrate antegrade blood flow and normal Doppler waveforms. IMPRESSION: 1. Unremarkable bilateral carotid Doppler ultrasound. 2. Estimated mild (less than 50%) bilateral ICA origin stenoses; no hemodynamically significant ICA or ECA stenosis. 3. Patent vertebral arteries with antegrade blood flow. This document is electronically signed by Kee Fotoe MD., Nov 10 2018 07:00:59 PM ET
[2018-11-10] MEDS ORDERED: LOVENOX SUB-Q SCH (22:00)
[2018-11-11] MEDS ORDERED: CATAPRES PO PRN (05:57)
--- NOTE | 2018-11-11 08:36 | Discharge Summary ---
Providers - Providers Date of Admission: 11/09/18 17:12 Attending physician: GILBERT SANCHEZ MD 11/09/18 15:37 Consult to Physician [CONS] Urgent Comment: Consulting Provider: GEN ROJO Physician Instructions: Reason For Exam: cva vs tia 11/09/18 17:12 Occupational Therapy Evaluate and Treat [CONS] Routine Comment: Reason For Exam: Neuro deficits Physical Therapy Evaluation and Treat [CONS] Routine Comment: Reason For Exam: Neuro deficits 11/09/18 17:17 Speech Therapy Evaluation and Treat [CONS] Routine Reason For Exam: swallow eval 11/09/18 19:08 Consult to Physician [CONS] Routine Comment: Consulting Provider: GHISLAINE UNDERWOOD Physician Instructions: Reason For Exam: cva 11/10/18 13:52 Consult to Physician [CONS] Routine Comment: Consulting Provider: ABELINO CAMERON Physician Instructions: Reason For Exam: abnormal MRA brain Primary care physician: PARK VANN Hospitalization Reason for admission: right sided weakness Condition: Stable Hospital course: Patient is 77 yo woman with a history of Parkinsons Disease, OA with a wheel 4 legged walker, COPD, HTN, CAD S/P CABG and diet controlled type 2 dm who presented to [facility] ED with right sided weakness. CT head showed no acute intra- cranial finding, left mastoid opaficivation, either Eustachian tube dysfunction or left mastoiditis. [facility] called to assess for possible transfer they did not accept the patient. Patient's right-sided weakness improved. The findings of mastoiditis was still concerning and was discussed with the patient on discharge. I also did call after discharge and discussed with the son. Forced ENT evaluation also evaluated by Dr. [place] seriousness of this diagnosis was discussed. Levaquin was prescribed labetalol with the Medrol Dosepak. Other findings noted in the MRI was also discussed and recommended an outpatient follow-up with vascular surgeon. -Cervical radiculopathy -Right sided weakness, stroke work-up in progress, MRI brain pending, Carotid Doppler pending==>if those are negative then most likely right shoulder OA related (h/o past steroids injection in that shoulder) -Severe mastoiditis -Hypertension -PD by history -h/o COPD -h/o CAD Disposition: TO HOME OR SELFCARE Time spent for discharge: 35 MINS Core Measure Documentation - Palliative Care Palliative Care/ Comfort Measures: Not Applicable - Core Measures Any of the following diagnoses?: none Exam - Physical Exam Narrative exam: GEN: WDWN, NAD, Awake, Alert, Orientated, obese HEENT: NCAT, mask face, EOMI, PERRL, OP Clear NECK: supple, no adenopathy, no thyromegaly, no JVD CVS/HEART: RRR, normal S1S2, pulses present bilaterally CHEST/LUNGS: CTA B, Symmetrical chest expansion, good air entry bilaterally GI/Abdomen: soft, NTND, good bowel sounds, no guarding or rebound /Bladder: no suprapubic tenderness, no CVA or paraspinal tenderness EXT/Skin: no c/c/e, no obvious rash MSK: FROM x 4 except right shoulder Neuro: CN 2-12 grossly intact, no new focal deficits, resting tremor, no significant cogwheel rigidity Psych: calm - Constitutional Vitals: Temp Pulse Resp BP Pulse Ox 98.1 F 62 20 148/83 98 11/11/18 07:14 11/11/18 07:14 11/11/18 07:14 11/11/18 07:14 11/11/18 07:14 Plan Activity: advance as tolerated Diet: low fat Special Instructions: record daily weights, record daily BP diary Follow up with: PARK VANN MD [Primary Care Provider] - 7 Days BRENDEN MISTRY MD [Staff Physician] - 7 Days MARRY KENNEDY MD [Staff Physician] - 7 Days Prescriptions: amLODIPine [Norvasc] 10 mg PO DAILY #30 tab traMADol [Ultram 50 MG tab] 50 mg PO Q6HR PRN #14 tablet PRN Reason: Pain Other Discharge Orders: Occupational Therapy (Amb) Location: None Selected
[2018-11-11] MEDS: ECOTRIN PO SCH (10:03)
[2018-11-11] MEDS: LASIX PO SCH (10:03)
[2018-11-11] MEDS: K-DUR PO SCH (10:03)
[2018-11-11] MEDS: CYMBALTA PO SCH (10:04)
[2018-11-11] MEDS: NORVASC PO SCH (10:04)
[2018-11-11] MEDS: TOPROL XL PO SCH (10:05)
[2018-11-11] MEDS: SINEMET PO SCH (10:05)
[2018-11-11 11:13] VITALS: BP 150/81
--- NOTE | 2018-11-11 14:13 | Progress Note ---
Subjective Date of service: 11/11/18 Interval history: cleared for discharge stable neuro exam no focal weakness does have severe Parkinsons Disease that I believe is causing her symptoms review of imaging studies is negatve full note is dictated Objective - Vital Sign Vital Signs - 12hr 11/11/18 11/11/18 11/11/18 04:01 05:51 06:20 Temperature 98.0 F Pulse Rate 63 Pulse Rate [ Apical] Respiratory 18 Rate Blood Pressure 182/97 198/99 198/99 O2 Sat by Pulse 96 Oximetry 11/11/18 11/11/18 11/11/18 07:14 08:39 09:04 Temperature 98.1 F Pulse Rate 62 Pulse Rate [ 86 Apical] Respiratory 20 18 Rate Blood Pressure 148/83 O2 Sat by Pulse 98 98 95 Oximetry 11/11/18 11:10 Temperature 98.2 F Pulse Rate 61 Pulse Rate [ Apical] Respiratory 18 Rate Blood Pressure 150/81 O2 Sat by Pulse 99 Oximetry - Laboratory Findings CBC and BMP: 11/09/18 15:55 11/09/18 15:55 Abnormal Lab Findings: Abnormal Labs 11/09/18 11/10/18 15:55 04:18 Lymph % (Auto) 37.2 H [place] % (Auto) 7.9 H HDL Cholesterol 91 H
--- NOTE | 2018-11-11 19:55 | Consultation ---
HISTORY OF PRESENT ILLNESS: This is a 77-year-old black female that presents to the Emergency Room of [facility] with acute onset of confusion, right-sided weakness. She denies symptoms such as this in the past. She has a prior history of treatment for Parkinson's disease and was clinically fairly stable with this. I have reviewed her CT scan and MRI of the brain, it shows diffuse atrophy compatible with the diagnosis of Parkinson's disease and atrophy of the brain stem structures. At this point, her neurological examination is normal and she has negative MRA of the brain and no focal occlusive disease. There is also hypoplastic right vertebral artery. PHYSICAL EXAMINATION: VITAL SIGNS: Her blood pressure at this point to be 148/83, pulse rate is 80, respirations 18, and pO2 on oxygenation is 98%. NEUROLOGIC: Cranial nerves are intact. Speech is slow, but slurred consistent with Parkinson's disease. She has a resting tremor, increased rigidity, slowness of motion as well. She has cogwheel rigidity, increased spasticity, slow responses, resting tremor 3-6 cycles per second. IMPRESSION: Features of this patient's examination completely consistent with Parkinson's disease. I do not find any evidence of a focal stroke. I have reviewed her CT, MRI/MRA. We found no evidence of any acute stroke. Atrophic changes in the brain are quite consistent with the changes seen with Parkinson's disease. I will follow up with her in the office and see about adjusting her medications as I do not think her Parkinson's medicines were adjusted, may be the basis for why she became weak and had trouble with her movements. I gave her a copy of my office referral note. I have a plan to see her in the next 3-4 days. She may be discharged at this point. JOB# [id number] JOLANTA/CORRIE
== END 2018-11-11 15:57 | disposition home or self-care (01) | DRG 554 ==
LOC: ED 15:04 → 4A 17:12
PROVIDERS: ADMIT Internal Medicine; ATTEND Internal Medicine
DX: M19.011 Primary osteoarthritis, right shoulder (principal); G45.9 Transient cerebral ischemic attack, unspecified; G20 Parkinson's disease; E11.8 Type 2 diabetes mellitus with unspecified complications; I25.10 Atherosclerotic heart disease of native coronary artery without angina pectoris; J44.9 Chronic obstructive pulmonary disease, unspecified; H70.92 Unspecified mastoiditis, left ear; I11.0 Hypertensive heart disease with heart failure; I50.9 Heart failure, unspecified; G89.29 Other chronic pain; Z95.1 Presence of aortocoronary bypass graft; Z90.49 Acquired absence of other specified parts of digestive tract; Z82.49 Family history of ischemic heart disease and other diseases of the circulatory system; Z88.0 Allergy status to penicillin; Z79.899 Other long term (current) drug therapy; Z79.82 Long term (current) use of aspirin
CPT/HCPCS: 36415; 70450; 70544; 70551; 80048; 80061; 83880; 84484; 85025; 85610; 85670; 85730; 93005; 93010; 93306; 93880; G0378; J1650; Q0162

== ENCOUNTER 2021-05-11 17:14 | Emergency (ER) | payer MEDICARE ==
[2021-05-11 18:41] VITALS: BP 172/108
[2021-05-11 20:06] LABS: Basophils # (Auto) 0.1 K/mm3 (0.0-0.1); Basophils % (Auto) 1.1 % (0.0-1.8); Eosinophils # (Auto) 0.1 K/mm3 (0.0-0.4); Eosinophils % (Auto) 2.1 % (0.0-4.3); Hematocrit 42.2 % (30.3-42.9); Hemoglobin 13.7 gm/dl (10.1-14.3); Lymphocytes # (Auto) 2.1 K/mm3 (1.2-5.4); Lymphocytes % (Auto) 37.1 % (13.4-35.0); Mean Corpuscular HGB Conc 33 % (30-34); Mean Corpuscular Volume 93 fl (79-97); Monocytes # (Auto) 0.4 K/mm3 (0.0-0.8); Monocytes % (Auto) 7.7 % (0.0-7.3); Platelet Count 237 K/mm3 (140-440); Red Blood Count 4.52 M/mm3 (3.65-5.03); Red Cell Distribution Width 14.3 % (13.2-15.2)
[2021-05-11 20:51] LABS: Alanine Aminotransferase 7 units/L (7-56); Albumin 3.9 g/dL (3.9-5); BUN/Creatinine Ratio 16; Blood Urea Nitrogen 13 mg/dL (7-17); Calcium 9.4 mg/dL (8.4-10.2); Hemolysis Index 3
--- NOTE | 2021-05-11 22:24 | Emergency Department Report ---
ED General Adult HPI - General Chief complaint: Nausea/Vomiting/Diarrhea Stated complaint: GENERAL WEAKNESS Time Seen by Provider: 05/11/21 22:13 Source: patient, EMS Mode of arrival: Stretcher Limitations: No Limitations - History of Present Illness Initial comments: Patient is 80 years old female with history of Parkinson disease, coronary artery disease, CABG. Patient presented to the ER complaining of watery diarrhea for the last 5 days. Patient denied any nausea or vomiting. Patient is complaining of crampy abdominal pain. Diffuse with no radiation. Patient denied any fever or chills. No chest pain or shortness of breath. - Related Data Home Medications Medication Instructions Recorded Confirmed Last Taken Carbidopa/Levodopa 25-100 [Sinemet 25 - 100 mg PO TID 03/23/17 11/09/18 Unknown 25/100] DULoxetine [Cymbalta] 30 mg PO DAILY 11/09/18 11/09/18 Unknown Metoprolol Xl [Metoprolol 50 mg PO DAILY 11/09/18 11/09/18 Unknown SUCCINATE ER TAB] Previous Rx's Medication Instructions Recorded Last Taken Type Aspirin EC [Ecotrin] 325 mg PO DAILY tablet 11/11/18 Unknown Rx Carbidopa/Levodopa 25-100 [Sinemet 1 each PO BID tablet 11/11/18 Unknown Rx 25/100] Furosemide [Lasix TAB] 40 mg PO DAILY tablet 11/11/18 Unknown Rx Metoprolol [Lopressor TAB] 25 mg PO BID tablet 11/11/18 Unknown Rx Ondansetron [Zofran ODT TAB] 4 mg PO Q8HR tab.rapdis 11/11/18 Unknown Rx Potassium Chloride [K-Dur] 20 meq PO DAILY tablet 11/11/18 Unknown Rx Rasagiline Mesylate (Nf) 0.5 mg PO DAILY 11/11/18 Unknown Rx amLODIPine [Norvasc] 10 mg PO DAILY #30 tab 11/11/18 Unknown Rx traMADoL [Ultram 50 MG tab] 50 mg PO Q6HR PRN #14 tablet 11/11/18 Unknown Rx Allergies Allergy/AdvReac Type Severity Reaction Status Date / Time Penicillins Allergy Severe Hives Verified 03/22/17 17:36 ED Review of Systems ROS: Stated complaint: GENERAL WEAKNESS Other details as noted in HPI Comment: All other systems reviewed and negative Constitutional: denies: chills, fever Respiratory: denies: cough, shortness of breath, SOB with exertion Cardiovascular: denies: chest pain, palpitations Gastrointestinal: abdominal pain (Cramping), diarrhea. denies: nausea, vomiting, hematemesis, melena, hematochezia Genitourinary: denies: urgency Musculoskeletal: denies: back pain Neurological: denies: headache, weakness, numbness, paresthesias, confusion ED Past Medical Hx - Past Medical History Hx Hypertension: Yes Hx Heart Attack/AMI: No Hx Congestive Heart Failure: Yes Hx Arthritis: Yes Hx COPD: Yes Additional medical history: parkinsons - Surgical History Hx Open Heart Surgery: Yes (12/09/94) Hx Cholecystectomy: Yes (2004) Additional Surgical History: open heart surgery - Social History Smoking Status: Never Smoker - Medications Home Medications: Home Medications Medication Instructions Recorded Confirmed Last Taken Type Carbidopa/Levodopa 25-100 [Sinemet 25 - 100 mg PO TID 03/23/17 11/09/18 Unknown History ] DULoxetine [Cymbalta] 30 mg PO DAILY 11/09/18 11/09/18 Unknown History Metoprolol Xl [Metoprolol 50 mg PO DAILY 11/09/18 11/09/18 Unknown History SUCCINATE ER TAB] Aspirin EC [Ecotrin] 325 mg PO DAILY tablet 11/11/18 Unknown Rx Carbidopa/Levodopa 25-100 [Sinemet 1 each PO BID tablet 11/11/18 Unknown Rx ] Furosemide [Lasix TAB] 40 mg PO DAILY tablet 11/11/18 Unknown Rx Metoprolol [Lopressor TAB] 25 mg PO BID tablet 11/11/18 Unknown Rx Ondansetron [Zofran ODT TAB] 4 mg PO Q8HR tab.rapdis 11/11/18 Unknown Rx Potassium Chloride [K-Dur] 20 meq PO DAILY tablet 11/11/18 Unknown Rx Rasagiline Mesylate (Nf) 0.5 mg PO DAILY 11/11/18 Unknown Rx amLODIPine [Norvasc] 10 mg PO DAILY #30 tab 11/11/18 Unknown Rx traMADoL [Ultram 50 MG tab] 50 mg PO Q6HR PRN #14 tablet 11/11/18 Unknown Rx ED Physical Exam - General Limitations: No Limitations General appearance: alert, in no apparent distress - Head Head exam: Present: atraumatic, normocephalic, normal inspection - Eye Eye exam: Present: normal appearance - ENT ENT exam: Present: normal exam, normal orophraynx, mucous membranes moist. Absent: mucous membranes dry - Neck Neck exam: Present: normal inspection, full ROM. Absent: tenderness, meningismus - Respiratory Respiratory exam: Present: normal lung sounds bilaterally - Cardiovascular Cardiovascular Exam: Present: regular rate, normal rhythm, normal heart sounds - GI/Abdominal GI/Abdominal exam: Present: soft, normal bowel sounds. Absent: distended, tenderness, guarding, rebound, rigid, organomegaly, mass, bruit, pulsatile mass, hernia - Extremities Exam Extremities exam: Present: normal inspection, full ROM, normal capillary refill. Absent: tenderness - Back Exam Back exam: Present: normal inspection, full ROM. Absent: CVA tenderness (R), CVA tenderness (L) - Neurological Exam Neurological exam: Present: alert, oriented X3, CN II-XII intact - Psychiatric Psychiatric exam: Present: normal mood - Skin Skin exam: Present: warm, intact, normal color ED Course Vital Signs 05/11/21 18:40 Temperature 98.3 F Pulse Rate 76 Respiratory 16 Rate Blood Pressure 172/108 [Right] O2 Sat by Pulse 99 Oximetry ED Medical Decision Making - Lab Data Result diagrams: 05/11/21 19:49 05/11/21 19:49 - Radiology Data Radiology results: report reviewed - Medical Decision Making Patient is 80 years old female with history of Parkinson disease, coronary mike ry disease, CABG. Patient presented to the ER complaining of watery diarrhea for the last 5 days. Patient denied any nausea or vomiting. Patient is complaining of crampy abdominal pain. Diffuse with no radiation. Patient denied any fever or chills. No chest pain or shortness of breath. Patient remained stable in the ER with a stable vital sign. Labs reviewed and is unremarkable. CT abdomen and pelvis with IV contrast show evidence of proctitis. Patient given prescription for ciprofloxacin and advised to follow- up with her primary care physician in the next 2 to 3 days and to return to the ER if she develop any new symptoms. Critical care attestation.: If time is entered above; I have spent that time in minutes in the direct care of this critically ill patient, excluding procedure time. ED Disposition Clinical Impression: Proctitis, Acute diarrhea Disposition: HOME / SELF CARE / HOMELESS Is pt being admited?: No Condition: Stable Instructions: Diarrhea, Adult, Proctitis Referrals: PRIMARY CARE, [Primary Care Provider] - 3-5 Days
--- NOTE | 2021-05-11 23:12 | Cat Scan Report ---
CT ABDOMEN AND PELVIS WITH IV CONTRAST INDICATION: "Generalized" weakness, abd pain with diarrhea x 2 days. COMPARISON: CT 03/22/2017 TECHNIQUE: All CT scans at this facility use dose modulation, automated exposure control, iterative reconstructi on or weight based dosing, when appropriate, to reduce radiation dose to as low as reasonably achieva ble. FINDINGS: Lung Bases: No significant abnormality. Skeletal System: No acute abnormality. Chronic vertebral plana is noted at L2. This results in signi ficant canal stenosis unchanged. ABDOMEN: Liver: No significant abnormality. Gallbladder: Removed. Bile Ducts: No significant abnormality. Adrenals: No significant abnormality. Right Kidney: There is an enhancing lateral lower pole mass which measures 1.5 cm, unchanged. Periphe rally enhancing posterior lateral upper pole mass measures 1.4 cm (previously 1.3 cm). Upper pole cys t is stable. Left Kidney: No significant abnormality. Pancreas: No significant abnormality. Spleen: No significant abnormality. Upper GI tract: No significant abnormality. Lymph Nodes: No significant adenopathy. Aorta: No significant abnormality. Additional Findings: No significant abnormality. PELVIS: Colon: There is mild diffuse rectal wall thickening with mild perirectal stranding. Urinary Bladder and Distal Ureters: No significant abnormality. Appendix: Not visualized. Lymph Nodes: No significant adenopathy. Additional Findings: Calcified uterine fibroids. IMPRESSION: 1. There is mild rectal wall thickening distally with mild perirectal stranding which could be seen in the setting of proctitis. 2. 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 3. Additional incidental findings as above. Signer Name: Mateus Castano MD Signed: 05/11/2021 11:08 PM Workstation Name: [id number]
== END 2021-05-12 02:15 | disposition home or self-care (01) ==
LOC: ED 17:14
DX: K62.89 Other specified diseases of anus and rectum (principal); R19.7 Diarrhea, unspecified; Z88.0 Allergy status to penicillin; I10 Essential (primary) hypertension; Z90.49 Acquired absence of other specified parts of digestive tract
CPT/HCPCS: 36415; 74177; 80053; 83735; 85025; 99284; Q9967